=== PATIENT | female | born 1955 | race Caucasian/White ===

== ENCOUNTER → 2018-03-06 11:40 | Outpatient (CLI) | payer BC, SELFPAY ==
[2018-03-06 14:45] LABS: Anion Gap 9 (5-15); BUN 10 mg/dL (7-18); BUN/Creat Ratio 16.3 RATIO (10-20); CRP < 2.90 mg/L (0.0-3.0); Calcium,Total 8.7 mg/dL (8.5-10.1); Chloride 106 mmol/L (98-107); Creatinine, Serum 0.61 mg/dL (0.55-1.02); EST Glomerular Filtration Rate 106 mL/min (>60); Est Glom Filt Rate - Afr Amer 128 mL/min (>60); Ferritin 65 ng/mL (8-252); Glucose 85 mg/dL (74-106); Iron 94 ug/dL (50-170); Potassium 4.1 mmol/L (3.5-5.1); Sodium Level 142 mmol/L (136-145); Thyroid Stim Hormone (TSH) 0.19 uIU/mL (0.358-3.74)
[2018-03-06 14:55] LABS: Erythrocyte Sedimentation Rate < 1 mm/hr (0-30)
[2018-03-06 14:57] LABS: Hematocrit 37.9 % (37-47); Hemoglobin 12.8 g/dl (12.0-15.0); Mean Corp Hgb Conc 33.8 g/gl (32-36); Mean Corpuscular Hgb 31.1 pg (27.0-32.0); Platelet Count 267 K/mm3 (150-450); RBC Distribution Width CV 14.3 % (11.6-14.6); RBC Distribution Width SD 47.4 fl (35.1-43.9); Red Blood Count 4.12 M/mm3 (4.2-5.4); White Blood Count 4.5 K/mm3 (4.4-11.0)
[2018-03-06 15:01] LABS: Scan Indicated on CBC? Y/N NO
[2018-03-07 12:23] LABS: Vitamin B12 457 pg/mL (211-911); Vitamin D,25 Hydroxy 31.7 ng/mL (29.95-100.01)
[2018-03-08 08:48] LABS: T4 Free Direct 0.84 ng/dL (0.76-1.46)
[2018-03-08 14:56] LABS: ANTINUCLEAR ANTIBODIES DIRECT Negative (Negative)
== END ==
PROVIDERS: Family Provider Internal Medicine; PCP Internal Medicine; Visit Provider Family Medicine
DX: R20.0 Anesthesia of skin (principal); E03.9 Hypothyroidism, unspecified
CPT/HCPCS: 80048; 82306; 82607; 82728; 83540; 84439; 84443; 84481; 85027; 85652; 86038; 86140

== ENCOUNTER → 2018-05-02 08:13 | Outpatient (CLI) | payer BC, SELFPAY ==
[2018-05-02 11:49] LABS: Free T3 2.6 pg/mL (2.18-3.98); T4 Free Direct 0.76 ng/dL (0.76-1.46); Thyroid Stim Hormone (TSH) 0.32 uIU/mL (0.358-3.74)
[2018-05-05 14:05] LABS: Follicle Stimulating Hormone 63.6 mIU/mL; Luteinizing Hormone 29.7 mIU/mL
== END ==
PROVIDERS: Family Provider Family Medicine; PCP Family Medicine; Visit Provider Family Medicine
DX: E03.9 Hypothyroidism, unspecified (principal)
CPT/HCPCS: 36415; 83001; 83002; 84439; 84443; 84481

== ENCOUNTER 2018-06-22 14:03 | Emergency (ER) | payer BC, SELFPAY ==
[2018-06-22 14:03] VITALS: BP 124/72; PULSE 63; RESP 14; TEMP 36.4; O2SAT 100; BMI 26.6
[2018-06-22 14:34] VITALS: BP 111/70; PULSE 65; RESP 15; O2SAT 100
--- NOTE | 2018-06-22 14:34 | ED.VISSUMM ---
- ER Visit Summary Date of Service: 06/22/18 Chief Complaint: [] Bee sting right shoulder right posterior thigh today red hive rash over the body History of Present Illness: The patient is a 62 F [] mowing the grass when she was stung by bees or hornets to the right upper shoulder and right posterior thighs she developed immediate rash covering most of her body she had no fever cough chest pain shortness of breath no lip or tongue or airway issues or compromise or swelling paramedics were called and she was given Benadryl brought to the hospital, she is not prone to bee sting reactions as she has been stung before with no reaction she was not ill in any way she has no past history and no complaints this time other than itching all over Physical Examination: [] Vital signs are within normal range she has a red hive type rash covering from her neck down to her lower extremities she is awake and alert her airways intact there is no signs of any airway compromise no mucosal swelling her speech is easy and clear her swallowing is normal her lungs are clear heart tones are normal abdomen soft nontender the sting beckham to the thigh and upper shoulder area to the right are unremarkable no obvious foreign material she is awake alert moving all 4 extremities no no cardiovascular symptoms Test Results: [] Emergency Department Course and Treatment: [] At this time patient has no systemic signs of than the rash she is resting comfortably bed this occurred about an hour ago she was treated by EMS with Benadryl at this time she will be given Solu-Medrol Pepcid we watch her in the department IV fluids, as long as she remains asymptomatic she will given a dose of Kenalog continue Pepcid Benadryl EpiPen prescription and she was instructed to follow-up with appliance counselor and return for any change in symptoms and she understands we will do so Treatment Plan: [] Disposition: [] Home stable Impression: [] Acute generalized hives type reaction after bee sting, no airway compromise or cardiovascular symptoms This note was generated with [employer] dictation software. It may contain incorrect words, spelling, and punctuation that were not noted in review of the chart prior to signing ED Disposition - Plan for ED Patient: Chief Complaint: Allergic Reaction Referrals: Jem Garcia MD [Primary Care Provider] -
[2018-06-22] MEDS: Naproxen 500 MG Tablet PO (14:35)
[2018-06-22] MEDS: MethylPREDNISolone 125 MG/2 ML Vial IV (14:35)
--- NOTE | 2018-06-22 14:37 | ED.DEP ---
ED Disposition - Plan for ED Patient: Chief Complaint: Allergic Reaction Instructions: ED Allergic Reaction General Other, ED Bite Sting Insect Gen Allergic React Prescriptions: DiphenhydrAMINE [Benadryl] 25 mg PO TID PRN PRN #20 cap PRN Reason: Itching Epinephrine [Epi Pen] 0.3 mg IM X1 #1 syringe Famotidine [Pepcid] 20 mg PO BID #28 tab Referrals: Jem Garcia MD [Primary Care Provider] -
--- NOTE | 2018-06-22 14:40 | ED.DEP ---
ED Disposition - Plan for ED Patient: Chief Complaint: Allergic Reaction Instructions: ED Bite Sting Insect Gen Allergic React, ED Allergic Reaction General Other Prescriptions: DiphenhydrAMINE [Benadryl] 25 mg PO TID PRN PRN #20 cap PRN Reason: Itching Epinephrine [Epi Pen] 0.3 mg IM X1 #1 syringe Famotidine [Pepcid] 20 mg PO BID #28 tab Referrals: Jem Garcia MD [Primary Care Provider] - Marko Moscoso MD [COURTESY STAFF PHYSICIAN] -
[2018-06-22] MEDS: Triamcinolone Acetonide 40 MG/ML Vial IM (15:34)
[2018-06-22 15:36] VITALS: BP 125/71; PULSE 65; RESP 16; O2SAT 100
== END 2018-06-22 15:51 | disposition home or self-care (01) ==
PROVIDERS: Emergency Provider Emergency Medicine; Family Provider Family Medicine; PCP Family Medicine
DX: T63.441A Toxic effect of venom of bees, accidental (unintentional), initial encounter (principal); L50.9 Urticaria, unspecified; Y92.096 Garden or yard of other non-institutional residence as the place of occurrence of the external cause
CPT/HCPCS: 96361; 96372; 96374; 96375; 99285; J7040; J3490

== ENCOUNTER → 2018-09-15 10:42 | Outpatient (CLI) | payer BC, SELFPAY ==
[2018-09-15 12:39] LABS: Vitamin D,25 Hydroxy 29.2 ng/mL (29.95-100.01)
[2018-09-15 12:46] LABS: Free T3 2.7 pg/mL (2.18-3.98); T3 Uptake 37 % (30-39); T4 Free Direct 0.81 ng/dL (0.76-1.46); T7 / Free Thyroxin Index 2.2 (1.4-4.5); Thyroid Stim Hormone (TSH) 0.26 uIU/mL (0.358-3.74)
[2018-09-16 08:55] LABS: Thyroid Peroxidase AB 11 IU/mL (0-34)
== END ==
PROVIDERS: Family Provider Family Medicine; PCP Family Medicine; Visit Provider Family Medicine
DX: E03.9 Hypothyroidism, unspecified (principal); E55.9 Vitamin D deficiency, unspecified
CPT/HCPCS: 82306; 84436; 84439; 84443; 84479; 84481; 86376

== ENCOUNTER → 2018-10-21 07:32 | Outpatient (CLI) | payer BC, SELFPAY ==
--- NOTE | 2018-10-21 07:36 | NM_ITS ---
CLINICAL: 83-year-old female with history of suppressed serum TSH level. I-123 THYROID UPTAKE and SCAN COMPARISON: None available FINDINGS: The patient was administered a 342 uCi I-123 capsule by mouth. The 4-hour I-123 radioactive iodine thyroidal uptake was calculated to be 23.0 % (normal 5 to 25 %). The 24-hour I-123 radioactive iodine thyroidal uptake was calculated to be 42.0 % (normal 5 to 40 %). The I-123 thyroid scan demonstrates a focal increase in radiopharmaceutical concentration identified in the superior-mid pole of the enlarged right lobe of the thyroid gland with a relative decrease in tracer distribution noted in the remaining right lobe, thyroid isthmus and left lobe thyroid colloid. No definitive hypofunctioning-cold nodules are visualized. NM/Thyroid Uptake Single or Mult IMPRESSION: 1. UPPER LIMITS OF NORMAL 4- and ELEVATED 24-hour I-123 radioactive iodine thyroidal uptakes. 2. 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 3. There are no hypofunctioning-cold nodules visualized in the right-left thyroid lobes. Electronically Signed: Raúl Sarmiento DO at 10:01 EST Tel , Service support ,
== END ==
PROVIDERS: Family Provider Family Medicine; PCP Family Medicine; Referring Provider Family Medicine; Visit Provider Family Medicine
DX: E03.9 Hypothyroidism, unspecified (principal)
CPT/HCPCS: 78012; A9516

== ENCOUNTER → 2019-09-21 15:32 | Outpatient (CLI) | payer BC, SELFPAY ==
[2019-09-21 18:10] LABS: T4 Free Direct 0.86 ng/dL (0.76-1.46); Thyroid Stim Hormone (TSH) 0.32 uIU/mL (0.358-3.74)
== END ==
PROVIDERS: Family Provider Family Medicine; PCP Family Medicine; Visit Provider Family Medicine
DX: E03.9 Hypothyroidism, unspecified (principal)
CPT/HCPCS: 36415; 84439; 84443

== ENCOUNTER → 2019-10-12 18:17 | Outpatient (CLI) | payer BC, SELFPAY ==
[2019-10-15 18:14] LABS: HPV Reflexed? NOT INDICATED
== END ==
PROVIDERS: Family Provider Family Medicine; PCP Family Medicine; Referring Provider Nurse Practitioner Adult Health; Visit Provider Nurse Practitioner Adult Health
DX: Z12.4 Encounter for screening for malignant neoplasm of cervix (principal)
CPT/HCPCS: 88175; G0145

== ENCOUNTER → 2020-10-12 08:02 | Outpatient (CLI) | payer BC, SELFPAY ==
[2020-10-12 10:54] LABS: Anion Gap 3 (5-15); BUN 12 mg/dL (7-18); BUN/Creat Ratio 16.7 RATIO (10-20); Calcium,Total 8.8 mg/dL (8.5-10.1); Chloride 108 mmol/L (98-107); Cholesterol 228 mg/dL (200); Creatinine, Serum 0.72 mg/dL (0.55-1.02); EST Glomerular Filtration Rate 87 mL/min (>60); Est Glom Filt Rate - Afr Amer 105 mL/min (>60); Free T3 2.8 pg/mL (2.18-3.98); Glucose 76 mg/dL (74-106); High Density Lipoprotein 92 mg/dL; Sodium Level 139 mmol/L (136-145); T4 Free Direct 0.78 ng/dL (0.76-1.46); Triglycerides 39 mg/dL; Very Low Density Lipoprotein 8 mg/dL (5-40)
[2020-10-12 11:06] LABS: Vitamin D,25 Hydroxy 46.6 ng/mL
[2020-10-13 07:16] LABS: SARS-COV-2 TOTAL ABS Reactive (Nonreactive)
== END ==
PROVIDERS: PCP Family Medicine; Referring Provider Family Medicine; Visit Provider Family Medicine
DX: Z00.00 Encounter for general adult medical examination without abnormal findings (principal); E03.9 Hypothyroidism, unspecified; E55.9 Vitamin D deficiency, unspecified; Z13.220 Encounter for screening for lipoid disorders; Z13.1 Encounter for screening for diabetes mellitus
CPT/HCPCS: 36415; 80048; 80061; 82306; 84439; 84443; 84481; 86769

== ENCOUNTER → 2020-10-25 15:35 | Outpatient (CLI) | payer BC, SELFPAY ==
--- NOTE | 2020-10-25 15:36 | BI_ITS ---
MAMMOGRAPHY - BILATERAL SCREENING REASON FOR EXAM: Female, 65 years old. Routine annual screening examination. PERTINENT HISTORY: Non-contributory. TECHNIQUE: Digital bilateral breast romina (3D mammographic acquisition) in the CC and MLO projections. 2-D mediolateral oblique (MLO) and craniocaudad (CC) views of both breasts were obtained. CAD: Full Field Digital Mammography with Computer Added Detection was performed. COMPARISON: Comparison is made with prior outside examination dated 09/24/2019. FINDINGS: Breast Composition: The breasts are heterogeneously dense, which may obscure small masses. Stable 1.5 cm x 2.3 cm well-defined nodule in the upper lateral aspect of the left breast. Correlation with ultrasound is recommended. No other significant abnormalities are identified. BI/SCRN MAMM (CAD)W/ROMINA BILAT IMPRESSION: Stable 1.5 cm x 2.3 cm well-defined nodule in the upper lateral aspect of the left breast as described. Correlation with ultrasound is recommended. ASSESSMENT CATEGORY: BIRADS Category 0: Incomplete. Need additional imaging evaluation. A letter regarding these results will be sent to the patient by the facility within 30 days. Approximately 10% of breast cancers are not detected by mammography. A normal mammogram should not delay biopsy of a clinically suspicious abnormality. [id number] Electronically Signed: Shun Mike MD at 8:12 EST , Service support ,
== END ==
PROVIDERS: PCP Family Medicine; Visit Provider Family Medicine
DX: Z12.31 Encounter for screening mammogram for malignant neoplasm of breast (principal); Z13.820 Encounter for screening for osteoporosis
CPT/HCPCS: 77063; 77067

== ENCOUNTER → 2020-10-31 12:27 | Outpatient (CLI) | payer BC, SELFPAY ==
--- NOTE | 2020-10-31 12:29 | US_ITS ---
STUDY: ULTRASOUND BREAST - LEFT REASON FOR EXAM: Female, 65 years old. Abnormal screening mammogram. TECHNIQUE: Axial and longitudinal images of the LEFT breast were performed with a high resolution ultrasound transducer. # OF IMAGES: 11 COMPARISON: Comparison is made with prior mammogram dated 10/25/2020. FINDINGS: LEFT Breast: The mammographic abnormality corresponds to 2.1 cm x 2.1 cm x 0.7 cm cyst with a septation. A 4 month sonographic follow-up examination is suggested. US/Breast Limited Unilateral IMPRESSION: 2.1 cm x 2.1 cm x 0.7 cm cyst with a septation at the 1 o''clock position of the breast at 9 cm from the nipple. A four-month follow-up examination is recommended. ASSESSMENT CATEGORY: BIRADS Category 3: Probably Benign - Short-Interval Follow-up Suggested. A letter regarding these results will be sent to the patient by the facility within 30 days. Electronically Signed: Shun Mike MD at 15:01 EST , Service support ,
== END ==
PROVIDERS: PCP Family Medicine; Visit Provider Family Medicine
DX: R92.8 Other abnormal and inconclusive findings on diagnostic imaging of breast (principal); N60.02 Solitary cyst of left breast
CPT/HCPCS: 76642

== ENCOUNTER → 2021-02-27 09:31 | Outpatient (CLI) | payer BC, SELFPAY ==
--- NOTE | 2021-02-27 09:35 | US_ITS ---
STUDY: ULTRASOUND BREAST - LEFT REASON FOR EXAM: Female, 65 years old. 4 month follow-up of the left breast ultrasound. TECHNIQUE: Axial and longitudinal images of the LEFT breast were performed with a high resolution ultrasound transducer. # OF IMAGES: 18 COMPARISON: Comparison is made with prior examination dated 04/30/2021. FINDINGS: LEFT Breast: Stable 1.9 cm x 2 signed by 0.5 cm cyst with a septation at the 1 o''clock position of the breast at 9 cm from nipple. US/Breast Limited Unilateral IMPRESSION: Stable examination. Routine mammographic follow-up is recommended. ASSESSMENT CATEGORY: BIRADS Category 2: Benign. A letter regarding these results will be sent to the patient by the facility within 30 days. Electronically Signed: Shun Mike MD at 10:15 EDT , Service support ,
== END ==
PROVIDERS: PCP Family Medicine; Referring Provider Family Medicine; Visit Provider Family Medicine
DX: R92.8 Other abnormal and inconclusive findings on diagnostic imaging of breast (principal)
CPT/HCPCS: 76642

== ENCOUNTER 2022-01-09 15:59 | Outpatient (CLI) | payer BC, SELFPAY ==
--- NOTE | 2022-01-09 16:05 | BI_ITS ---
MAMMOGRAPHY - BILATERAL SCREENING REASON FOR EXAM: Female, 66 years old. Routine annual screening examination. PERTINENT HISTORY: Non-contributory. TECHNIQUE: Digital bilateral breast romina (3D mammographic acquisition) in the CC and MLO projections. 2-D mediolateral oblique (MLO) and craniocaudad (CC) views of both breasts were obtained. CAD: Full Field Digital Mammography with Computer Added Detection was performed. COMPARISON: Comparison is made with prior study dated 10/25/2020. FINDINGS: Breast Composition: The breasts are heterogeneously dense, which may obscure small masses. Stable 1.5 cm x 2.3 cm well-defined nodule in the upper lateral aspect of the left breast. This was demonstrated to be a septated cyst on prior sonogram. No other significant abnormalities are identified. There has been no significant change since the prior study. BI/SCRN MAMM (CAD)W/ROMINA BILAT IMPRESSION: Stable bilateral screening mammogram. Yearly follow-up mammogram recommended. (A) ASSESSMENT CATEGORY: BIRADS Category 2: Benign. A letter regarding these results will be sent to the patient by the facility within 30 days. Approximately 10% of breast cancers are not detected by mammography. A normal mammogram should not delay biopsy of a clinically suspicious abnormality. [id number] Electronically Signed: Shun Mike MD at 8:23 EDT ,
== END 2022-01-09 23:59 | disposition home or self-care (01) ==
PROVIDERS: PCP Family Medicine; Referring Provider Family Medicine; Visit Provider Family Medicine
DX: Z12.31 Encounter for screening mammogram for malignant neoplasm of breast (principal)
CPT/HCPCS: 77063; 77067

== ENCOUNTER → 2022-02-07 | Outpatient (CLI) | payer BC, SELFPAY ==
[2022-02-13 16:45] LABS: HPV APTIMA, High Risk Negative (Negative)
== END | disposition home or self-care (01) ==
LOC: LABSPEC 16:06
PROVIDERS: PCP Family Medicine; Visit Provider Nurse Practitioner Women's Health
DX: Z78.0 Asymptomatic menopausal state (principal)
CPT/HCPCS: 87624; 88175; G0145

== ENCOUNTER 2022-07-03 08:17 | Emergency (ER) | payer BC, SELFPAY ==
[2022-07-03 08:19] VITALS: BP 144/78; PULSE 55; RESP 11; TEMP 37.1; O2SAT 99; BMI 23.5
--- NOTE | 2022-07-03 08:31 | RAD_ITS ---
STUDY: X-RAY CHEST REASON FOR EXAM: Female, 66 years old. Chest pain TECHNIQUE: Single AP portable view of the chest. COMPARISON: None. FINDINGS: EKG electrodes are seen. Hyperinflation. The lungs are clear. There is no demonstrated pleural abnormality. Normal size heart. Normal mediastinum and stephen. Normal visualized pulmonary arteries. There is atherosclerotic calcification of the aortic arch with tortuosity. Normal visualized thoracic spine. Normal visualized ribs, clavicles, and shoulders. There is no demonstrated abnormality of the visualized soft tissue structures of the upper abdomen. RAD/Chest 1 View (Portable) IMPRESSION: Hyperinflation. The lungs are clear. Electronically Signed: Shun Mike MD at 9:13 EDT ,
--- NOTE | 2022-07-03 08:31 | EKG12_ITS ---
Test Reason : SYNCOPE Blood Pressure : / mmHG Vent. Rate : 058 BPM Atrial Rate : 058 BPM P-R Int : 148 ms QRS Dur : 088 ms QT Int : 430 ms P-R-T Axes : 067 059 058 degrees QTc Int : 422 ms Sinus bradycardia with sinus arrhythmia Otherwise normal ECG Confirmed by LINUS SKINNER, MARQUITA ([id number]), acquisition editor RAMON LEDEZMA ([id number]) on 07/05/2022 9:47:39 AM Referred By: SUREKHA Confirmed By:MARQUITA BARRIGA MD
[2022-07-03 08:34] VITALS: O2SAT 100
[2022-07-03 08:38] LABS: Absolute Lymphocyte Count 2.77 X10^3/uL (0.83-4.51); Absolute Neutrophil Count 3.2 X10^3/uL (2.0-7.7); Basophil# 0.06 X10^3/uL; Basophil% 0.9 % (0-1); Eosinophil# 0.15 X10^3/uL; Eosinophils% 2.2 % (0-5); Hematocrit 41.2 % (37-47); Hemoglobin 13.9 g/dL (12.0-15.0); Lymphocyte # 2.77 X10^3/ul (0.83-4.51); Lymphocyte % 40.6 % (19-41); Mean Corp Hgb Conc 33.7 g/dL (32-36); Mean Corpuscular Hgb 32.2 pg (27.0-32.0); Mean Corpuscular Volume 95.4 fL (81-99); Mean Platelet Vol. 11.4 fl (6.2-12.0); Monocyte# 0.59 X10^3/uL; Monocyte% 8.6 % (0-10); NRBC Flagged by Analyzer 0 % (0-5); Neutrophil # 3.23 X10^3/uL (2.7-7.7); Neutrophil % 47.3 % (47-70); Platelet Count 366 K/mm3 (150-450); RBC Distribution Width CV 13.7 % (11.6-14.6); RBC Distribution Width SD 48.5 fl (35.1-43.9); Red Blood Count 4.32 M/mm3 (4.2-5.4); White Blood Count 6.8 K/mm3 (4.4-11.0)
--- NOTE | 2022-07-03 08:49 | EDS_ITS ---
HPI History of Present Illness Chief Complaint: Syncope Informant: patient Onset/Context/Timing Onset: Today Current Severity: Gone Maximum Severity: Mild Narrative Narrative: 66-year-old female no seen past medical history. No major surgeries. She denies being on any medications. States she has been feeling fine the last several days. No recent illness or hospitalization. States she was in the garage talking to people when she got lightheaded and had a syncopal event lasted briefly a few seconds. She did hit her left forehead. Denies any headache. No chest pain. No palpitations. No recent illness. No nausea, vomiting, diarrhea. No fever. No dysuria. She has had no chest pain or shortness of breath. Time she remembers passing out was when she had a significant reaction in the past to bee stings. Currently she feels fine. Denies any injuries when she fell and she hit her left forehead. Prior similar symptoms: No Recent Illness/Hospitalization: No PFSH PFSH Home Medications multivitamin (Multiple Vitamins tablet) 1 ea PO DAILY 06/22/18 [History Last Taken Unknown] cholecalciferol (vitamin D3) 50 mcg (2,000 unit) capsule 50 mcg PO DAILY 02/07/22 [History Last Taken Unknown] epinephrine 0.3 mg/0.3 mL injection, auto-injector 07/03/22 [History Last Taken Unknown] Allergy/AdvReac Type Severity Reaction Status Date / Time bee venom protein (honey bee) Allergy Rash Verified 07/03/22 08:18 [bees] Family History Father Heart disease Mother Dementia Surgical History H/O medial meniscus repair of left knee H/O tubal ligation Social History household members: none current occupational status: employed and retired 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 Review of Systems ROS Unobtainable: Denies due to encephalopathy Constitutional Constitutional ED: Denies chills or fever(s) Eyes Eyes: Denies blurry vision ENT ENT ED: Denies ear pain Cardiovascular Cardiovascular: Denies chest pain Respiratory/Chest Respiratory/Chest: Denies cough or dyspnea Gastrointestinal Gastrointestinal: Denies abdominal pain, constipation, diarrhea, melena, nausea or vomiting Genitourinary Genitourinary ED: Denies dysuria or hematuria Musculoskeletal Musculoskeletal: Denies arthralgias or back pain Integumentary Denies abscess or Abrasions Neurologic Neurologic: Denies headache(s) Psychiatric Psychiatric: Denies anxiety or depression Endocrine Endocrinology: Denies cold intolerance Hematologic/Lymphatic Hematologic/Lymphatic: Reports none Allergic/Immunologic Allergic/Immunologic ED: Denies mouth swelling or tongue swelling EXAM Physical Exam Narrative Exam Narrative: 66-year-old female no acute distress vital signs stable afebrile. Pulse ox 9 9% on room air no signs of hypoxia. She looks well. Does not look sick. She is in no distress. H EENT exam she has a small contusion left forehead. Pupils round reactive light. TMs and throat are normal. Scalp nontender. Lungs are clear equal symmetrical heart regular rate and rhythm no murmur rate about 60. Chest wall nontender. Abdomen soft nontender. Back nontender. Cervical, thoracic lumbar spine nontender. Trachea midline. Moving all 4 extremities. Nontender no deformity. Normal range of motion. Neurologically she is awake and alert with no focal motor deficits. 5 out of 5 night clerk strength. Dorsi plantarflexion intact. He has a normal exam other than mild contusion on her left forehead. Const Vital Signs: 07/03/22 08:19 07/03/22 08:22 07/03/22 09:08 Temperature 98.8 F Temperature Source Temporal Pulse Rate 55 L 58 L Pulse Rate [Lying] Pulse Rate [Sitting (for 1 minute prior to obtaining)] Pulse Rate [Standing (for 1 minute prior to obtaining)] Respiratory Rate 11 L 13 Respiratory Effort Normal Non-Labored Respiratory Pattern Normal Blood Pressure 144/78 H 105/76 Blood Pressure [Lying] Blood Pressure [Sitting (for 1 minute prior to obtaining)] Blood Pressure [Standing (for 1 minute prior to obtaining)] Blood Pressure Mean 100 85 Blood Pressure Mean [Lying] Blood Pressure Mean [Sitting (for 1 minute prior to obtaining)] Blood Pressure Mean [Standing (for 1 minute prior to obtaining)] Pulse Ox 99 100 Oxygen Delivery Method Room Air Room Air 07/03/22 08:34 07/03/22 08:52 Temperature Temperature Source Pulse Rate Pulse Rate [Lying] 57 L Pulse Rate [Sitting (for 1 minute prior to obtaining)] 56 L Pulse Rate [Standing (for 1 minute prior to obtaining)] 83 Respiratory Rate Respiratory Effort Respiratory Pattern Blood Pressure Blood Pressure [Lying] 124/75 H Blood Pressure [Sitting (for 1 minute prior to obtaining)] 132/73 H Blood Pressure [Standing (for 1 minute prior to obtaining)] 105/76 Blood Pressure Mean Blood Pressure Mean [Lying] 91 Blood Pressure Mean [Sitting (for 1 minute prior to obtaining)] 92 Blood Pressure Mean [Standing (for 1 minute prior to obtaining)] 85 Pulse Ox 100 Oxygen Delivery Method Room Air Positive well nourished and well developed; Negative for obese, cachectic, contractures or unkempt General Appearance ED: well developed and NAD; Negative for unkempt, cachectic, contractures, cyanotic, diaphoretic or pallor Nutritional Appearance: Negative for cachectic or obese HEENT Reports TM's clear and moist mucous membranes; Denies dry mucous membranes HEENT Narrative: Left forehead small contusion. No significant hematoma. No laceration. trauma Tympanic Membrane ED: Yes TM's clear Mouth ED: No dry mucous membranes Mouth: No dry mucous membranes Eyes PERRL and EOMs intact bilaterally General Eye ED: Negative for pale conjunctiva or scleral icterus Neck no lymphadenopathy, supple and no JVD General: Negative for tenderness or other Lymph Lymphatic: Negative for other Chest Wall inspection of chest normal and palpation of chest normal Chest: Negative for other Resp normal respiratory effort and clear to auscultation bilaterally Effort and Inspection: Negative for retractions Auscultation: Negative for rales, rhonchi or wheezes Cardio regular rate, regular rhythm, S1 normal heart sound, S2 normal heart sound and no murmurs Palpation: Negative for palpable S3 Rate: Negative for bradycardia Rhythm: Negative for abnormal rhythm GI normal to inspection, nondistended, normoactive bowel sounds, non-tender, non- distended and no masses Inspection: Negative for abdominal distention Auscultation: normoactive bowel sounds Palpation: soft; Negative for tender Bladder / Kidney Exam: No other Back/Spine no CVA tenderness General Back: Negative for CVA tenderness Cervical Spine: Negative for cervical spine tenderness Thoracic Spine / Upper Back: Negative for thoracic spinal tenderness Lumbar Spine / Lower Back: Negative for lumbar spinal tenderness Extremity normal to inspection General Extremety ED: Negative for edema or tenderness General Extremity: Negative for edema Neuro oriented x3, CN's II-XII intact bilaterally and no sensory deficits noted Sensorium / Orientation: alert; Negative for orientation impaired, lethargic or stuporous Sensory Exam: No sensory level loss detected Motor Exam: strength 5/5 throughout; Negative for general weakness or strength abnormal Psych mental status grossly normal Appearance: Negative for unkempt Attitude: No agitated Mood & Affect: Negative for depressed Skin no rashes or lesions noted, no wounds and skin turgor normal General Skin Exam: elasticity normal; Negative for jaundice or pallor Lesions: No lesion noted Rashes: No rashes noted Trauma: Negative for abrasion Wounds: Negative for wounds noted MDM MDM MDM Narrative Medical decision making narrative: 66-year-old female had a syncopal episode. Exam is benign other than mild left forehead contusion. She undergo cardiac work-up with orthostatic vital signs. Repeat exam the patient is doing well at 9:10 AM. She feels fine. Her labs are unremarkable as is her chest x-ray and EKG. Her exam is normal other than small contusion to her forehead. She denies any headache or neck pain. Her orthostatic vital signs she had mild drop in her blood pressure from sitting to standing but she had no symptoms. She has no signs or reasons to be dehydrated. And her labs do not show that. She has had no recent palpitations or chest pain. Compliant with her being discharged home with outpatient follow-up with her primary care physician Dr. Rodger Pompa. Lab Data Attestation: I reviewed the patient's lab results. Lab results narrative: CBC shows a white count of 6.8. H&H of 13.9 and 41. Platelets normal. Chemistries normal gap is 6 normal BUN and creatinine at 10 and 0.7. Glucose 12 3 and troponin is normal at 4. Labs: Laboratory Results - last 24 hr 07/03/22 07/03/22 08:22 08:22 WBC 6.8 RBC 4.32 Hgb 13.9 Hct 41.2 MCV 95.4 MCH 32.2 H MCHC 33.7 RDW Std Deviation 48.5 H RDW Coeff of Porfirio 13.7 Plt Count 366 MPV 11.4 Immature Gran % (Auto) 0.400 Neut % (Auto) 47.3 Lymph % (Auto) 40.6 Nolan % (Auto) 8.6 Eos % (Auto) 2.2 Baso % (Auto) 0.9 Absolute Neuts (auto) 3.2 Absolute Lymphs (auto) 2.77 Nucleated RBC % 0 Sodium 142 Potassium 3.8 Chloride 107 Carbon Dioxide 29.0 Anion Gap 6 BUN 10 Creatinine 0.75 Estim Creat Clear Calc 62.69 Est GFR (MDRD) Af Amer 100 Est GFR (MDRD) Non-Af 83 BUN/Creatinine Ratio 13.4 Glucose 123 H Calcium 9.1 Troponin I High Sens 4 Radiography Chest X-Ray - ED: 1 View, Read by ED Physician, Heart, Lungs, Mediastinum, Bony Structures, No Acute Disease and Chronic Changes Diagnostic Testing: Chest x-ray, portable, single view interpreted by self shows no acute abnormality. Normal cardiac silhouette. Normal lung parry. Normal mediastinum. Rhythm Strip Rhythm Strip: Sinus Rhythm Rate: 58 Ectopy: None EKG Initial EKG: Attestation: I personally reviewed and interpreted this EKG as follows: Interpretation: Sinus Rhythm, No Acute Injury Pattern and Sinus Bradycardia Comments: Sinus bradycardia rate of 58. No acute signs of VA, ischemia or dysrhythmia. Discharge Plan Triage Chief Complaint: Syncope ED Provider: Geovanny Sanchez Dx/Rx/DC Orders Clinical Impression: Syncope, Closed head injury Instructions: ED Head Injury (Adult), ED Fainting, Uncertain Cause Prescriptions: No Action cholecalciferol (vitamin D3) 50 mcg (2,000 unit) capsule 50 mcg PO DAILY multivitamin [Multiple Vitamins] 1 EACH tablet 1 ea PO DAILY epinephrine [Epi E-Z Pen] 0.3 mg/0.3 mL Auto-Injector Primary Care Provider: Jem Garcia Referrals: Jem Garcia MD [Primary Care Provider] - 3-5 Days Activity Restrictions/Additional Instructions: Other than the contusion on your forehead your exam is normal. All your lab work, EKG and chest x-ray were unremarkable. Follow-up with your doctor for further evaluation. We do not have a specific cause for why you may have briefly passed out. Ice to your forehead. Tristanenol for pain. Return if severe headache, intractable vomiting or not acting right. But at this time you do not need a CAT scan. Disposition Disposition: Home, Self Care
[2022-07-03 08:52] VITALS: BP 105/76; BP 124/75; BP 132/73; PULSE 56; PULSE 57; PULSE 83
[2022-07-03 08:55] LABS: Anion Gap 6 (5-15); BUN 10 mg/dL (7-18); BUN/Creat Ratio 13.4 RATIO (10-20); Calcium,Total 9.1 mg/dL (8.5-10.1); Chloride 107 mmol/L (98-107); Creatinine, Serum 0.75 mg/dL (0.55-1.02); EST Glomerular Filtration Rate 83 mL/min (>60); Est Glom Filt Rate - Afr Amer 100 mL/min (>60); Estimated Creatinine Clearance 62.69 ml/min; Glucose 123 mg/dL (74-106); Potassium 3.8 mmol/L (3.5-5.1); Sodium Level 142 mmol/L (136-145); Troponin-I HS (w/2H Reflex) 4 pg/mL (3.0-54.0)
[2022-07-03 09:08] VITALS: BP 105/76; PULSE 58; RESP 13; O2SAT 100
[2022-07-03 09:18] VITALS: BP 123/81; PULSE 57; RESP 17; O2SAT 100
[2022-07-03 10:35] LABS: Reflex Troponin-HS? (from REC) Y
== END 2022-07-03 09:21 | disposition home or self-care (01) ==
PROVIDERS: Emergency Provider Emergency Medicine; PCP Family Medicine; Visit Provider Emergency Medicine
DX: R55 Syncope and collapse (principal); S00.83XA Contusion of other part of head, initial encounter; W22.8XXA Striking against or struck by other objects, initial encounter
CPT/HCPCS: 71045; 80048; 84484; 85025; 93005; 99285

== ENCOUNTER → 2023-01-29 | Outpatient (CLI) | payer MEDICARE, OTHER, SELFPAY ==
[2023-01-29 13:32] LABS: Anion Gap 2 (5-15); BUN 10 mg/dL (7-18); BUN/Creat Ratio 15.3 RATIO (10-20); Calcium,Total 9.3 mg/dL (8.5-10.1); Chloride 108 mmol/L (98-107); Cholesterol 224 mg/dL (200); Creatinine, Serum 0.65 mg/dL (0.55-1.02); EST Glomerular Filtration Rate 97 mL/min (>60); Est Glom Filt Rate - Afr Amer 117 mL/min (>60); Glucose 86 mg/dL (74-106); High Density Lipoprotein 94 mg/dL; Potassium 4.2 mmol/L (3.5-5.1); Sodium Level 137 mmol/L (136-145); Thyroid Stim Hormone (TSH) 0.19 uIU/mL (0.358-3.74); Triglycerides 47 mg/dL; Very Low Density Lipoprotein 9 mg/dL (5-40)
[2023-01-29 13:37] LABS: Vitamin D,25 Hydroxy 60.2 ng/mL
[2023-01-31 12:44] LABS: Free T3 2.9 pg/mL (2.18-3.98); T4 Free Direct 0.79 ng/dL (0.76-1.46)
[2023-02-01 08:12] LABS: Thyroid Peroxidase AB < 9 IU/mL (0-34)
== END | disposition home or self-care (01) ==
LOC: MFPLAB 09:59
PROVIDERS: PCP Family Medicine; Visit Provider Family Medicine
DX: Z13.1 Encounter for screening for diabetes mellitus (principal); E03.9 Hypothyroidism, unspecified; Z13.220 Encounter for screening for lipoid disorders; E55.9 Vitamin D deficiency, unspecified
CPT/HCPCS: 36415; 80048; 80061; 82306; 84439; 84443; 84481; 86376

== ENCOUNTER → 2023-02-26 | Outpatient (CLI) | payer MEDICARE, OTHER, SELFPAY ==
--- NOTE | 2023-02-26 12:56 | BI_ITS ---
MAMMOGRAPHY - BILATERAL SCREENING REASON FOR EXAM: Female, 67 years old. Routine annual screening examination. PERTINENT HISTORY: Non-contributory. TECHNIQUE: Digital bilateral breast romina (3D mammographic acquisition) in the CC and MLO projections. 2-D mediolateral oblique (MLO) and craniocaudad (CC) views of both breasts were obtained. CAD: Full Field Digital Mammography with Computer Added Detection was performed. COMPARISON: Mammogram from 01/09/2022, 10/25/2020. Left breast ultrasound from 03/30/2021. FINDINGS: Breast Composition: The breasts are heterogeneously dense, which may obscure small masses. There is an asymmetry in the right slightly inner retroareolar breast, approximately 1.6 cm posterior to the nipple and seen only on cc views. This appears slightly more conspicuous than on previous studies. Further assessment with spot compression views and ultrasound if needed is recommended. There is a stable 2.4 x 1.3 cm well-circumscribed mass in the left upper outer breast that was previously characterized as a septated benign cyst on ultrasound from 03/30/2021. No suspicious calcifications. BI/SCRN MAMM (CAD)W/ROMINA BILAT IMPRESSION: Further imaging evaluation recommended, as described above. (E) Recall Side: Right Breast ASSESSMENT CATEGORY: BIRADS Category 0: Incomplete. Need additional imaging evaluation. A letter regarding these results will be sent to the patient by the facility within 30 days. Approximately 10% of breast cancers are not detected by mammography. A normal mammogram should not delay biopsy of a clinically suspicious abnormality. Electronically Signed: Ankur Blank MD at 16:49 EDT ,
--- NOTE | 2023-02-26 13:01 | BD_ITS ---
STUDY: DUAL ENERGY X-RAY ABSORPTIOMETRY / DXA REASON FOR EXAM: Female, 67 years old. [id number] TECHNIQUE: Bone Mineral Density (BMD) measurements of lumbar spine and bilateral hips were obtained. COMPARISON: None. FINDINGS: Lumbar Spine (L1-L4): g/cm2 (0.935) / T-score (-0.8) / Z-score (1.0) Findings are suggestive of normal bone density with a low fracture risk. Left Femur Total: g/cm2 (0.795) / T-score (-1.2) / Z-score (0.0) Left Femoral Neck: g/cm2 (0.696) / T-score (-1.4) / Z-score (0.2) Right Femur Total: g/cm2 (0.781) / T-score (-1.3) / Z-score (-0.1) Right Femoral Neck: g/cm2 (0.705) / T-score (-1.3) / Z-score (0.2) BD/Dexa Bone Density Study IMPRESSION: The patient is considered osteopenic as outlined below according to World Wayne Organization (WHO) criteria with a low fracture risk. Reference Information: The T-score is the number of standard deviations above or below the standard which is normal for young adults at their peak bone mineral density. The World Health Organization (WHO) interprets the T-scores as follows: Above -1 Normal bone density Between -1 and -2.5 Osteopenia Equal to / or below -2.5 Osteoporosis As a practical clinical guideline, osteopenia may be graded as follows: Mild -1 through -1.5 Moderate -1.6 through -2.0 Severe -2.1 through -2.4 The Z-score is the number of standard deviations above or below age-matched controls. A Z-score of less than -1.5 would be considered abnormal. References: 1. NIH Osteoporosis and Related Bone Diseases www osteo.org 2. International Society for Clinical Densitometry www iscd.org 3. National Osteoporosis Foundation www nof.org Electronically Signed: Shun Mike MD at 10:45 EDT ,
== END | disposition home or self-care (01) ==
LOC: OPBD 12:54
PROVIDERS: PCP Family Medicine; Referring Provider Family Medicine; Visit Provider Family Medicine
DX: Z12.31 Encounter for screening mammogram for malignant neoplasm of breast (principal); Z78.0 Asymptomatic menopausal state
CPT/HCPCS: 77063; 77067; 77080

== ENCOUNTER → 2023-03-06 | Outpatient (CLI) | payer MEDICARE, OTHER, SELFPAY ==
--- NOTE | 2023-03-06 12:22 | US_ITS ---
STUDY: ULTRASOUND BREAST - RIGHT REASON FOR EXAM: Female, 67 years old. Abnormal screening mammogram. TECHNIQUE: Axial and longitudinal images of the RIGHT breast were performed with a high resolution ultrasound transducer. # OF IMAGES: 34 COMPARISON: Comparison is made with prior mammogram dated February 26, 2023 and March 06, 2023. FINDINGS: RIGHT Breast: The retroareolar region of the breast was examined with ultrasound. No sonographic abnormality is seen. US/Breast Limited Unilateral IMPRESSION: No sonographic abnormality is seen. ASSESSMENT CATEGORY: BIRADS Category 1: Negative. A letter regarding these results will be sent to the patient by the facility within 30 days. Electronically Signed: Shun Mike MD at 14:59 EDT ,
--- NOTE | 2023-03-06 12:22 | BI_ITS ---
MAMMOGRAPHY - UNILATERAL DIAGNOSTIC: RIGHT BREAST REASON FOR EXAM: Female, 67 years old. Abnormal screening mammogram. PERTINENT HISTORY: Asymmetry in the inner retroareolar region of the right breast. TECHNIQUE: Compression spot views in the mediolateral oblique and craniocaudad projections were obtained. CAD: Full Field Digital Mammography with Computer Added Detection was performed. COMPARISON: Comparison is made with prior mammogram dated February 26, 2023. FINDINGS: Breast Composition: The breasts are heterogeneously dense, which may obscure small masses. There are no dominant masses or suspicious calcifications. No other significant abnormalities are identified. BI/DIAG MAMM W/CAD, UNILAT IMPRESSION: Negative unilateral diagnostic mammogram. Yearly followup mammogram recommended. (A) ASSESSMENT CATEGORY: BIRADS Category 1: Negative. A letter regarding these results will be sent to the patient by the facility within 30 days. Approximately 10% of breast cancers are not detected by mammography. A normal mammogram should not delay biopsy of a clinically suspicious abnormality. Electronically Signed: Shun Mike MD at 13:35 EDT ,
== END | disposition home or self-care (01) ==
LOC: OPBI 12:20
PROVIDERS: PCP Family Medicine; Referring Provider Family Medicine; Visit Provider Family Medicine
DX: R92.8 Other abnormal and inconclusive findings on diagnostic imaging of breast (principal)
CPT/HCPCS: 76642; 77065

== ENCOUNTER → 2024-03-11 | Outpatient (CLI) | payer MEDICARE, SELFPAY ==
[2024-03-11 18:10] LABS: Vitamin D,25 Hydroxy 47.2 ng/mL
[2024-03-11 18:30] LABS: Anion Gap 7 (5-15); BUN 12 mg/dL (7-18); BUN/Creat Ratio 18.6 RATIO (10-20); Calcium,Total 9.1 mg/dL (8.5-10.1); Chloride 105 mmol/L (98-107); Creatinine, Serum 0.64 mg/dL (0.55-1.02); EST Glomerular Filtration Rate 98 mL/min (>60); Est Glom Filt Rate - Afr Amer 118 mL/min (>60); Glucose 84 mg/dL (74-106); Sodium Level 137 mmol/L (136-145); T4 Free Direct 0.76 ng/dL (0.76-1.46); Thyroid Stim Hormone (TSH) 0.26 uIU/mL (0.358-3.74)
== END | disposition home or self-care (01) ==
PROVIDERS: PCP Family Medicine; Visit Provider Family Medicine
DX: E03.9 Hypothyroidism, unspecified (principal); M85.80 Other specified disorders of bone density and structure, unspecified site
CPT/HCPCS: 36415; 80048; 82306; 84439; 84443

== ENCOUNTER → 2024-03-17 | Outpatient (CLI) | payer MEDICARE, SELFPAY ==
--- NOTE | 2024-03-17 09:42 | BI_ITS ---
MAMMOGRAPHY - BILATERAL SCREENING REASON FOR EXAM: Female, 68 years old. Routine annual screening examination. PERTINENT HISTORY: Non-contributory. TECHNIQUE: Digital bilateral breast romina (3D mammographic acquisition) in the CC and MLO projections. 2-D mediolateral oblique (MLO) and craniocaudad (CC) views of both breasts were obtained. CAD: Full Field Digital Mammography with Computer Added Detection was performed. COMPARISON: Comparison is made with prior study dated March 06, 2023 and February 26, 2023. FINDINGS: Breast Composition: The breasts are heterogeneously dense, which may obscure small masses. Stable 1.8 cm x 2.2 cm nodular density in the deep upper lateral aspect of the left breast. This was demonstrated to be a septated cyst on prior sonogram. No other significant abnormalities are identified. There has been no significant change since the prior study. BI/SCRN MAMM (CAD)W/ROMINA BILAT IMPRESSION: Stable bilateral screening mammogram. Yearly follow-up mammogram recommended. (A) ASSESSMENT CATEGORY: BIRADS Category 2: Benign. A letter regarding these results will be sent to the patient by the facility within 30 days. Approximately 10% of breast cancers are not detected by mammography. A normal mammogram should not delay biopsy of a clinically suspicious abnormality. [id number] Electronically Signed: Shun Mike MD at 10:53 EDT ,
== END | disposition home or self-care (01) ==
PROVIDERS: PCP Family Medicine; Referring Provider Family Medicine; Visit Provider Family Medicine
DX: Z12.31 Encounter for screening mammogram for malignant neoplasm of breast (principal)
CPT/HCPCS: 77063; 77067

== ENCOUNTER → 2024-03-19 | Outpatient (CLI) | payer MEDICARE, SELFPAY | END | disposition home or self-care (01) | PROVIDERS: PCP Family Medicine; Visit Provider Family Medicine | DX: R79.89 Other specified abnormal findings of blood chemistry (principal) | CPT/HCPCS: 36415; 84480 ==

== ENCOUNTER → 2025-03-18 | Outpatient (CLI) | payer MEDICARE, SELFPAY ==
[2025-03-18 16:21] LABS: Anion Gap 13 (5-15); BUN 11 mg/dL (4-19); BUN/Creat Ratio 17.1 RATIO (10-20); Calcium,Total 9.4 mg/dL (7.6-11.0); Chloride 99 mmol/L (98-108); Creatinine, Serum 0.63 mg/dL (0.70-1.20); EST Glomerular Filtration Rate 97 (>60); Glucose 82 mg/dL (70-99); Potassium 4.1 mmol/L (3.3-5.1); Sodium Level 136 mmol/L (133-145); Thyroid Stim Hormone (TSH) 0.303 uIU/mL (0.300-4.200); Vitamin D,25 Hydroxy 59.6 ng/mL (30-100)
== END | disposition home or self-care (01) ==
LOC: MFPLAB 11:55
PROVIDERS: PCP Family Medicine; Referring Provider Family Medicine; Visit Provider Family Medicine
DX: M85.80 Other specified disorders of bone density and structure, unspecified site (principal); R79.89 Other specified abnormal findings of blood chemistry
CPT/HCPCS: 36415; 80048; 82306; 84439; 84443; 84481

== ENCOUNTER → 2025-03-30 | Outpatient (CLI) | payer MEDICARE, SELFPAY ==
--- NOTE | 2025-03-30 06:56 | BI_ITS ---
EXAM: SCRN MAMM (CAD)W/ROMINA BILAT DATE: 03/30/2025 CLINICAL HISTORY: F, Age 69 y/o , SCREENING No family history. BREAST CANCER RISK ASSESSMENT: Not assessed. TECHNIQUE: SCRN MAMM (CAD)W/ROMINA BILAT COMPARISON: Prior exam(s) dated March 17, 2024.. FINDINGS: TISSUE DENSITY: The breast tissue is heterogeneously dense, which may obscure small masses. Bilateral Breast Mammographic Findings: Increase in size of the previously seen nodular density in the upper-outer aspect of the left breast. Repeat sonogram recommended for further evaluation. BI/SCRN MAMM (CAD)W/ROMINA BILAT IMPRESSION: Slight increase in size of the nodular density in the upper lateral aspect of t he left breast as described. Repeat sonogram recommended. OVERALL FINAL ASSESSMENT BI-RADS 0: INCOMPLETE - NEED ADDITIONAL IMAGING EVALUATION. RECOMMENDATION: Ultrasound Recommended A letter with findings and recommendations will be mailed to the patient. Reading Location: [facility]
--- NOTE | 2025-03-30 06:58 | BD_ITS ---
PROCEDURE: DEXA BONE DENSITY STUDY 03/30/2025 REASON FOR EXAM: F, age 69 y/o . Postmenopausal. TECHNIQUE: DEXA BONE DENSITY STUDY COMPARISON: Comparison is made with prior study dated February 26, 2023. FINDINGS: BMD and T-SCORES Lumbar spine: 0.906 g/cm2, T-score -1.0 Levels: L1 through L4 Change from prior: Loss of 3.1%. Left femoral neck: 0.755 g/cm2, T-score -0.8 Femoral neck comparison data not recommended for monitoring change. Left total hip: 0.764 g/cm2, T-score -1.5 Change from prior: Loss of 3.8%. Right femoral neck: 0.724 g/cm2, T-score -1.1 Femoral neck comparison data not recommended for monitoring change. Right total hip: 0.762 g/cm2, T-score -1.5 Change from prior: Loss of 2.5%. The World Health Organization has defined the following categories based on bone density: Normal bone density: T-score equal to or greater than -1.0 Osteopenia: T-score between -1.0 and -2.5 Osteoporosis: T-score equal to or less than -2.5 The patient does meet the pharmacological treatment recommendations for prevention of osteoporosis. BD/Dexa Bone Density Study IMPRESSION: OSTEOPENIA. Recommend follow-up as clinically warranted. Reading Location: [id number]
--- OUTSIDE RECORDS SUMMARY | 2025-03-30 07:15 | XMS RPT_ITS | CCD ---
Author Organization [facility] Care Team Providers Care Carpet Tile Layer Name Role Phone Dr. Jem Garcia Primary Care Provider Dr. Jem Garcia Referring Provider Wilda PRESCRIPTION CLERK LENSES, GETACHEW Lux Attending Provider Jose SKINNER, Dr. Belle Primary Care Provider Jose SKINNER, Dr. Belle Attending Provider Jose SKINNER, Dr. Belle Referring Provider Yoshi Garcia Primary Care Unavailable Yoshi Garcia Attending Unavailable Yoshi Garcia Referring Unavailable Yoshi Garcia Primary Care Unavailable Yoshi Garcia Attending Unavailable Yoshi Garcia Referring Unavailable Yoshi Garcia Attending Unavailable Yoshi Garcia Referring Unavailable Yoshi Garcia Primary Care Unavailable Allergies Allergy Classification Reported Allergen(s) Allergy Type Date of Onset Reaction(s) Facility (4 sources) bee venom protein (honey bee) Allergy to substance 07-03-2022 [facility] (1 source) bee venom protein (honey bee) Drug allergy (disorder) 07-03-2022 [facility] Repository Medications Current Medications Medication Drug Class(es) Dates Sig (Normalized) Sig (Original) cholecalciferol 0.05 mg oral capsule (5 sources) Vitamin D Start: 02-07-2022 take 1 capsule by mouth once daily Cholecalciferol (Vitamin D3) 50 mcg (2,000 unit) capsule Active 50 ug PO DAILY February 07, 2022 12:00am [id number] 0.3 ml EPINEPHrine 1 mg/ml auto-injector (10 sources) alpha-Adrenergic Agonist, beta-Adrenergic Agonist, Catecholamine Start: 07-03-2022 Epinephrine (Epi E-Z Pen) 0.3 mg/0.3 mL Auto-Injector Active July 03, 2022 12:00am Start: 06-22-2018 End: 02-07-2022 inject 0.3 mg by intramuscular injection once Epinephrine 0.3 MG syringe Discontinued 0.3 mg IM ONE TIME June 22, 2018 12:00am February 07, 2022 2:09pm Multivitamin (Multiple Vitamins) 1 EACH tablet (6 sources) Start: 06-22-2018 take 1 tablet by mouth once daily Multivitamin (Multiple Vitamins) 1 EACH tablet Active 1 EACH PO DAILY June 22, 2018 2:04pm Start: 06-22-2018 take 1 tablet by martin th once daily Multivitamin (Multiple Vitamins) 1 EACH tablet Active 1 NMA PO DAILY June 22, 2018 12:00am Start: 06-22-2018 take 1 tablet by martin th once daily Multivitamin (Multiple Vitamins) 1 EACH tablet Active 1 EACH PO DAILY June 22, 2018 12:00am Completed/Discontinued Medications Medication Drug Class(es) Dates Sig (Normalized) Sig (Original) diphenhydrAMINE hydrochloride 25 mg oral capsule (6 sources) Histamine-1 Receptor Antagonist Start: 06-22-2018 End: 02-07-2022 take 1 capsule by mouth three times daily as needed Diphenhydramine Hcl 25 MG capsule Discontinued 25 mg PO 3 TIMES DAILY NEEDED as needed for Itching June 22, 2018 12:00am February 07, 2022 2:09pm famotidine 20 mg oral tablet (6 sources) Histamine-2 Receptor Antagonist Start: 06-22-2018 End: 02-07-2022 take 1 tablet by mouth twice daily Famotidine 20 MG tablet Discontinued 20 mg PO TWICE A DAY June 22, 2018 12:00am February 07, 2022 2:09pm Problems Problem Classification Problem Date Documented Da te Episodic/Chronic Menopausal disorders (6 sources) Atrophic vaginitis; Translations: [Postmenopausal atrophic vaginitis] Chronic Comment on above: denies symptoms Occlusion or stenosis of precerebral arteries (1 source) Occlusion and stenosis of right carotid artery; Translations: [Occlusion and stenosis of right carotid artery] Onset: 03-29-2025 Chronic Other bone disease and musculoskeletal deformities (1 source) Other specified disorders of bone density and structure, unspecified site; Translations: [Other specified disorders of bone density and structure, unspecified site] Onset: 03-24-2025 Episodic Other injuries and conditions due to external causes (4 sources) Closed injury of head; Translations: [Unspecified injury of head, initial encounter] 07-11-2022 Episodic Other screening for suspected conditions (not mental disorders or infectious disease) (1 source) Encounter for screening mammogram for malignant neoplasm of breast; Translations: [Encounter for screening mammogram for malignant neoplasm of breast] Onset: 03-26-2025 Episodic Residual codes; unclassified (1 source) Asymptomatic menopausal state; Translations: [Asymptomatic menopausal state] Onset: 03-26-2025 Episodic Syncope (4 sources) Syncope; Translations: [Syncope and collapse] 07-11-2022 Episodic Results Test Name Value Interpretation Reference Range Facility Anion gap in Serum or Plasma Ordered By: Yoshi Garcia on 03-18-2025 Anion gap [Moles/Vol] 13 mmol/L 02-18 [facility] BUN/creatinine ratioOrdered By: Yoshi Garcia on 03-18-2025 Urea nitrogen/Creatinine [Mass ratio] 17.1 mg/mg 07-26 [facility] Basic Metabolic Profile (BMP )on 03-18-2025 BUN/CRE 17.1 RATIO Normal 07-26 [facility] Comment on above: Order Comment: Order Date: 03/18/25 Order Info: 0667-1 - BMP Order Info: - T3F Order Info: 3 - TSH Order Info: 3024-04 T4F Performed By: #### L 500.2500, L501.84441, L501.9520, L506.0400 #### [facility] Laboratory [facility] [address] [place], [place], [id number] Calcium [Mass/Vol] 9.4 mg/dL Normal 7.6-11.0 [facility] Comment on above: Order Comment: Order Date: 03/18/25 Order Info: 0667-1 - BMP Order Info: 0 - T3F Order Info: 3 - TSH Order Info: 3024-04 T4F Performed By: #### L 500.2500, L501.14587, L501.9520, L506.0400 #### [facility] Laboratory [address] [place], [address] Chloride [Moles/Vol] 99 mmol/L Normal 98-108 [facility] Comment on above: Order Comment: Order Date: 03/18/25 Order Info: 666-10 - BMP Order Info: 3051-0 - T3F Order Info: 3016-3 - TSH Order Info: 3024-7 - T4F Performed By: #### L 500.2500, L501.24695, L501.9520, L506.0400 #### [facility] [address] [place], [address] CO2 [Moles/Vol] 24.0 mmol/L Normal 21.0-32.0 [facility] Comment on above: Order Comment: Order Date: 03/18/25 Order Info: 666-10 - BMP Order Info: 3051-0 - T3F Order Info: 3016-3 - TSH Order Info: 30247 - T4F Performed By: #### L 500.2500, L501.60808, L501.9520, L506.0400 #### [facility] [address] [place], [address] Creatinine [Mass/Vol] 0.63 mg/dL Low 0.70-1.20 [facility] Comment on above: Order Comment: Order Date: 03/18/25 Order Info: 666-10 - BMP Order Info: 3051-0 - T3F Order Info: 3016-3 - TSH Order Info: 3024-7 - T4F Performed By: #### L 500.2500, L501.89431, L501.9520, L506.0400 #### [facility] [address] [place], [address] GAP 13 Normal 5-15 [facility] Comment on above: Order Comment: Order Date: 03/18/25 Order Info: 666-10 - BMP Order Info: 3051-0 - T3F Order Info: 3016-3 - TSH Order Info: 3024-7 - T4F Performed By: #### L 500.2500, L501.41898, L501.9520, L506.0400 #### [facility] [address] [place], [address] GFR/1.73 sq M.predicted among non-blacks MDRD (S/P/Bld) [Vol rate/Area] 97 mL/min/{1.73_m2} Normal >60 [facility] Comment on above: Order Comment: Order Date: 03/18/25 Order Info: 666-10 - BMP Order Info: 3050-0 - T3F Order Info: 3 - TSH Order Info: 3024-04 - T4F Result Comment: mL/m in/1.73m2 CKD-EPI Creatinine Equation (2020) Performed By: #### L 500.2500, L501.57538, L501.9520, L506.0400 #### [facility] [address] [place], [address] Glucose [Mass/Vol] 82 mg/dL Normal 70-99 [facility] Comment on above: Order Comment: Order Date: 03/18/25 Order Info: 666-10 - BMP Order Info: 3050-0 - T3F Order Info: 3 - TSH Order Info: 3024-04 - T4F Performed By: #### L 500.2500, L501.09836, L501.9520, L506.0400 #### [facility] [address] [place], [address] Potassium [Moles/Vol] 4.1 mmol/L Normal 3.3-5.1 [facility] Comment on above: Order Comment: Order Date: 03/18/25 Order Info: 666-10 - BMP Order Info: 3050-0 - T3F Order Info: 3 - TSH Order Info: 7 - T4F Performed By: #### L 500.2500, L501.94053, L501.9520, L506.0400 #### [facility] [address] [place], [place], [address] Sodium [Moles/Vol] 136 mmol/L Normal 133-145 [facility] Comment on above: Order Comment: Order Date: 03/18/25 Order Info: 666-10 BMP Order Info: 3051-0 - T3F Order Info: 3 - TSH Order Info: 3024-04 - T4F Performed By: #### L 500.2500, L501.01749, L501.9520, L506.0400 #### [facility] Laboratory [address] [place], [place], [address] Urea nitrogen [Mass/Vol] 11 mg/dL Normal 4-19 [facility] Comment on above: Order Comment: Order Date: 03/18/25 Order Info: 666-10 BMP Order Info: 0 - T3F Order Info: 3015-12 - TSH Order Info: 3024-04 - T4F Performed By: #### L 500.2500, L501.29950, L501.9520, L506.0400 #### [facility] Laboratory [address] [place], [place], [address] Carbon dioxide, total [Moles /volume] in Central venous bloodOrdered By: Yoshi Garcia on 03-18-2025 CO2 [Moles/Vol] 24.0 mmol/L 21.0-32.0 [facility] Chloride assayOrdered By: Luigi Garcia on 03-18-2025 Chloride [Moles/Vol] 99 mmol/L 98-108 [facility] Free T3on 03-18-2025 Free T3 [Mass/Vol] 3.0 pg/mL Normal 2.18-3.98 [facility] Comment on above: Order Comment: Order Date: 03/18/25 Order Info: 666-10 BMP Order Info: 3051-0 - T3F Order Info: 3 - TSH Order Info: 7 - T4F Performed By: #### L 500.2500, L501.30165, L501.9520, L506.0400 #### [facility] [place], [address] Free R9Legxnem By: Kiet Garcia on 03-18-2025 Free T3 [Mass/Vol] 3.0 pg/mL 2.18-3.98 [facility] Glomerular filtration rate ( GFR) estimation/1.73 sq m using serum, plasma, or whole bOrdered By: Yoshi Garcia on 03-18-2025 GFR/1.73 sq M.predicted among non-blacks MDRD (S/P/Bld) [Vol rate/Area] 97 mL/min/{1.73_m2} >60 [facility] Comment on above: mL/min/1.73m2 CKD-EP I Creatinine Equation (2020) Potassium measurement (mass/ volume)Ordered By: Yoshi Garcia on 03-18-2025 Potassium (Unsp spec) [Mass/Vol] 4.1 mmol/L 3.3-5.1 [facility] Serum creatinine measurement (mass/volume)Ordered By: Yoshi Garcia on 03-18-2025 Creatinine [Mass/Vol] 0.63 mg/dL Low 0.70-1.20 [facility] Serum glucose measurement (m ass/volume)Ordered By: Yoshi Garcia on 03-18-2025 Glucose [Mass/Vol] 82 mg/dL 70-99 [facility] Serum or plasma calcium sohail urement (mass/volume)Ordered By: Yoshi Garcia on 03-18-2025 Calcium [Mass/Vol] 9.4 mg/dL 7.6-11.0 [facility] Serum or plasma urea nitroge n measurement (mass/volume)Ordered By: Yoshi Garcia on 03-18-2025 Urea nitrogen [Mass/Vol] 11 mg/dL 4-19 [facility] Sodium levelOrdered By: Conor Garcia on 03-18-2025 Sodium [Moles/Vol] 136 mmol/L 133-145 [facility] T4 Free Directon 03-18-2025 T4 FREE DIRECT 1.00 ng/dL Normal 0.76-1.46 [facility] Comment on above: Order Comment: Order Date: 03/18/25 Order Info: 666-10 - BMP Order Info: 3051-0 - T3F Order Info: 3 - TSH Order Info: 7 - T4F Performed By: #### L 500.2500, L501.69083, L501.9520, L506.0400 #### [facility] Laboratory [address] [place], [place], [address] T4 freeOrdered By: Kiet Garcia on 03-18-2025 Free T4 [Mass/Vol] 1.00 ng/dL 0.76-1.46 [facility] TSH DL <= 0.005 mIU/L QnOrde red By: Yoshi Garcia on 03-18-2025 TSH Qn 0.303 uIU/mL 0.300-4.200 [facility] Thyroid Stim Hormone (TSH)on 03-18-2025 TSH 0.303 uIU/mL Normal 0.300-4.200 [facility] Comment on above: Order Comment: Order Date: 03/18/25 Order Info: 666-10 - BMP Order Info: 0 - T3F Order Info: 3015-12 - TSH Order Info: 3024-04 - T4F Performed By: #### L 500.2500, L501.10713, L501.9520, L506.0400 #### [facility] Laboratory [address] [facility] [place], [place], [address] Vitamin D,25 Hydroxyon 03-18 Vitamin D 25-OH 59.6 ng/mL Normal 30-100 [facility] Comment on above: Order Comment: Order Date: 03/18/25 Order Info: 666-10 - BMP Order Info: 3051-0 - T3F Order Info: 3 - TSH Order Info: 3027 - T4F Result Comment: Odalys min D Status Deficiency: <20 ng/mL (50nmol/L) Insufficiency: 20-30 ng/mL (50-75 nmol/L) Sufficiency: 30-100 ng/mL (75-250 nmol/L) Toxicity: >100 ng/mL (>250 nmol/L) Performed By: #### L 506.1001 #### [facility] Laboratory [address] [place], [address] Basophil percentageOrdered B y: Dr. Garcia on 01-29-2023 Chloride [Moles/Vol] 108 mmol/L 98-107 [facility] Cholesterol [Mass/Vol] 224 mg/dL <200 [facility] Comment on above: <200 mg/dL Desirable 200-240 mg/dL Borderline >240 mg/dL High Risk Glucose [Mass/Vol] 86 mg/dL 74-106 [facility] Potassium [Moles/Vol] 4.2 mmol/L 3.5-5.1 [facility] Sodium [Moles/Vol] 137 mmol/L 136-145 [facility] Triglyceride [Mass/Vol] 47 mg/dL <199 [facility] Comment on above: The drugs N-Acetylcy steine and Metamizole may falsely depress this assay.Serum Triglycerides Reference Interval Normal <150 mg/dL Borderline high 150 - 199 mg/dL High 200 - 499 mg/dL Very High > or = 500 mg/dL Laboratory - Chemistry and C hemistry - challengeOrdered By: Dr. Garcia on 01-29-2023 CO2 [Moles/Vol] 27.0 mmol/L 21.0-32.0 [facility] Free T4 [Mass/Vol] 0.79 ng/dL 0.76-1.46 [facility] Urea nitrogen/Creatinine [Mass ratio] 15.3 mg/mg 10-20 [facility] No Panel InformationOrdered By: Dr. Garcia on 01-29-2023 Estimated GFR (MDRD) Amer 117 mL/min >60 [facility] Comment on above: GFR Calc Estimated GFR (MDRD) Non-Af Amer 97 mL/min >60 [facility] Comment on above: Non- GFR Calc Free Triiodothyronine (T3) pg/dL 2.9 pg/mL 2.18-3.98 [facility] Thyroid Stimulating Hormone (TSH) 0.19 uIU/mL 0.358-3.74 [facility] Vitamin D 25-Hydroxy 60.2 ng/mL [facility] Comment on above: Vitamin D 25(OH) Sta tus Range Deficiency <20 ng/mL (50nmol/L) Insufficiency 20 - 30 ng/mL (50 - 75 nmol/L) Sufficiency 30 - 100 ng/mL (75 - 250 nmol/L) Toxicity >100 ng/mL (>250 nmol/L) Serum or plasma calcium sohail urement (mass/volume)Ordered By: Dr. Garcia on 01-29-2023 Calcium [Mass/Vol] 9.3 mg/dL 8.5-10.1 [facility] Serum or plasma cholesterol in HDL measurement (mass/volume)Ordered By: Dr. Garcia on 01-29-2023 Cholesterol in HDL [Mass/Vol] 94 mg/dL >40 [facility] Comment on above: The drugs N-Acetylcy steine and Metamizole may falsely depress this assay. Reference Range HDL <40 mg/dL Low HDL Cholesterol HDL >or= 60 mg/dL High HDL Cholesterol Serum or plasma cholesterol in VLDL measurement (mass/volume)Ordered By: Dr. Garcia on 01-29-2023 Cholesterol in VLDL [Mass/Vol] 9 mg/dL 5-40 [facility] Serum or plasma creatinine m easurement (mass/volume)Ordered By: Dr. Garcia on 01-29-2023 Creatinine [Mass/Vol] 0.65 mg/dL 0.55-1.02 [facility] Comment on above: The validity of the calculated GFR & GFRAA in patients over 70 years has not been determined. Clinical correlation is essential. Serum or plasma low density lipoprotein (LDL) cholesterol measurement (mass/volume)Ordered By: Dr. Garcia on 01-29-2023 Cholesterol in LDL [Mass/Vol] 121 mg/dL 0-130 [facility] Serum or plasma thyroperoxid ase antibody assay (units/volume)Ordered By: Dr. Garcia on 01-29-2023 TPO Ab Qn [IU]/mL 0-34 [facility] Comment on above: Performed at: [address] [id number] Director: Luis Michaesl PhD, Phone: [phone] Serum or plasma urea nitroge n measurement (mass/volume)Ordered By: Dr. Garcia on 01-29-2023 Urea nitrogen [Mass/Vol] 10 mg/dL 7-18 [facility] Thin prep Papanicolaou smear with manual screeningOrdered By: Dr. Garcia on 01-29-2023 Thin prep Papanicolaou smear with manual screening 2 5-15 [facility] Cervical or vagninal specime n microscopic examination by cytology stain (reported ason 02-07-2022 Cytology report Cyto stain Doc (Cvx/Vag) Comment [facility] Work Phone: Comment on above: The Pap smear is a s creening test designed to aid in thedetection of premalignant and malignant conditions of theuterine cervix. It is not a diagnostic procedure andshould not be used as the sole means of detecting cervicalcancer. Both false-positive and false-negative reports dooccur. Detection in cervical specim en of any of human papilloma virus (HPV) 16, 18, 31, 33,on 02-07-2022 HPV 16+18+31+33+35+39+45+51 +52+56+58+59+66+68 DNA Probe+sig amp Ql (Cvx) Negative Negative [facility] Work Phone: Comment on above: This nucleic acid am plification test detects fourteen high-risk HPV types (16,18,31,33,35,39,45,51,52,56,58,59,66,68)without differentiation.Performed at: - [facility] [id number] Director: Erin Harris MD, Phone: [phone] at: = - [facility] [address] [id number] Director: Erin Harris MD, Phone: [phone] Laboratory - Cytologyon Drying Room Supervisor Cyto stain Nom (Cvx/Vag) [ID] Comment [facility] Work Phone: Comment on above: Gabriel Davistechi hnologist (ASCP) Laboratory - Miscellaneous t estson 02-07-2022 Service comment (Unsp spec) [Interp] Comment [facility] Work Phone: Comment on above: This liquid based Th inPrep(R) pap test was screened withthe use of an image guided system. Service comment (Unsp spec) [Interp] . [facility] Work Phone: No Panel Informationon 02-07 Pathology report final diagnosis Narrative Comment [facility] Work Phone: Comment on above: NEGATIVE FOR INTRAEP ITHELIAL LESION OR MALIGNANCY. CNCOon 09-24-2019 [facility] HNO ID: [id number] Author: Mammography Coordinator Service: ? Author Type: Physician Type: Letter Filed: 09/28/2019 11:32 PM Note Text: September 24, 2019 PID: [id number] Yanira Aguiar [facility] [facility] [place] [address] Dear Ms. Aguiar, We are pleased to inform you that the results of your recent breast imaging exam on 09/24/2019 are normal. Your mammogram demonstrates that you have dense breast tissue, which could hide abnormalities. Dense breast tissue, in and of itself, is a relatively common condition. Therefore, this information is not provided to cause undue concern; rather, it is to raise your awareness and promote discussion with your health care provider regarding the presence of dense breast tissue in addition to other risk factors. Early detection of cancer is very important. We also understand recommendations regarding breast cancer screening are controversial. Please discuss with your primary care provider which strategy is best for you and whether a mammogram is right for you. Your imaging studies and report will be kept on file at [facility] as part of your permanent medical record and are available for your continuing care. Thank you for allowing us to help in meeting your health care needs. Sincerely, Dr. Crawford Interpreting Radiologist [facility] (Normal over 40) Normal [facility] SCREENINGon 09-24-2019 [facility] SCREENING * * *Final Report* * * DATE OF EXAM: Sep 24 2019 2:38PM [facility] 0581 - [facility] SCREENING / PROCEDURE REASON: Screening Digital Mammography with ROMINA * * * * Physician Interpretation * * * * RESULT: #[id number] - [facility] SCREENING BILATERAL DIGITAL SCREENING MAMMOGRAM WITH CAD: 09/24/2019 HISTORY: Screening /Screening Mammogram-Patient reports NO symptoms /priors available for comparison. RESULT: TECHNIQUE: The study was acquired using full field digital technology and interpreted from soft copy. Current study was also evaluated with a Computer Aided Detection (CAD). Comparison is made to exams dated: 09/12/2018 mammogram, 09/06/2016 mammogram - [facility], 09/09/2017 mammogram - [facility], and 10/21/2014 mammogram - [facility]. The tissue of both breasts is heterogeneously dense. This may lower the sensitivity of mammography. There is a benign cyst in the left breast. No significant masses, calcifications, or other findings are seen in either breast. There has been no significant interval change. IMPRESSION: BENIGN FINDING There is no mammographic evidence of malignancy. A 1 year screening mammogram is recommended. 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 With representation from Breast Imaging, Internal Medicine, Women's Health, Family Medicine, and Medical/Surgical Oncology, the [facility] has carefully reviewed the data and reached the following consensus: 1) All women should engage in shared decision-making with their providers to decide when to start and how often to screen; 2) All women should have the opportunity to start screening mammography at age 40; 3) For women ages 45-55, we recommend annual screening mammograms; 4) For women ages 55 and over, we support both the transition from an annual to a biennial interval if this aligns more with patient's values and preferences, or continuation with annual screening; 5) All women should discuss with their providers when to stop screening mammograms. Internal Combustion Engine Assembler: Mike Transcribe Date/Time: Sep 24 2019 2:39P Dictated by: JESSICA CRAWFORD MD This examination was interpreted and the report reviewed and electronically signed by: JESSICA CRAWFORD MD on Sep 24 2019 4:43PM EST [id number] Normal [facility] PROGRESSon 09-24-2019 PROGRESS HNO ID: [id number] Author: Matthew Lam (Tech) Service: ? Author Type: Awake Overnight Counselor Type: Progress Notes Filed: 09/24/2019 2:20 PM Note Text: Radiology Service Progress Note PATIENT NAME: Yanira Aguiar DATE OF SERVICE: September 24, 2019 TIME: 2:19 PM PATIENT IDENTITY VERIFICATION COMPLETED USING TWO (2) IDENTIFIERS: Name and Date of confirmed by patient verbally. PATIENT GENDER DATA: Female. status: : No status: NO. PATIENT RELEVANT IMPLANT DATA REVIEWED: Not Applicable RADIOLOGY DEPARTMENT: Mammography PERIPHERAL IV DATA: Not applicable SIGNED BY: Matthew Lam September 24, 2019 2:19 PM Normal [facility] Vital Signs Date Time Vital Sign Value Performing Clinician Pamela ramírez 02-07-2022 14:07-0400 Body height 157.[address] Jem Garcia Work Phone: [facility] Work Phone: 02-07-2022 14:07-0400 Body mass index (BMI) [Ratio] 24 kg/m2 Dr. Jem Garcia Work Phone: [facility] Work Phone: 02-07-2022 14:07-0400 Body weight 59.[address] Jem Garcia Work Phone: [facility] Work Phone: 02-07-2022 14:07-0400 Diastolic blood pressure 76 mm[Hg] Dr. Jem Garcia Work Phone: [facility] Work Phone: 02-07-2022 14:07-0400 Systolic blood pressure 120 mm[Hg] Dr. Jem Garcia Work Phone: [facility] Work Phone: Encounters Encounter Date Encounter Type Care Provider Facility Start: 03-31-2025 ambulatory Yoshi Braxtoni lity:[facility] Start: 03-30-2025 ambulatory Yoshi Santiago lity:[facility] Start: 03-18-2025 End: 03-18-[address] Yoshi Garcia MD Work Phone: [facility] Work Phone: Start: 03-18-2025 End: 03-18-[address] Yoshi Garcia MD -Laboratory [facility] Start: 03-18-2025 End: 03-18-2025 ambulatory Yoshi Garcia Facility:[facility] Start: 03-06-2023 End: 03-06-2023 ambulatory [facility] Work Phone: Start: 03-06-2023 End: 03-06-2023 Patient encounter procedure [facility]-Outpatient Breast Imaging Work Phone: Start: 02-26-2023 End: 02-26-2023 ambulatory [facility] Work Phone: Start: 02-26-2023 End: 02-26-2023 Patient encounter procedure [facility]-Outpatient Bone Densitometry Work Phone: Start: 01-29-2023 End: 01-29-2023 ambulatory [facility] Work Phone: Start: 01-29-2023 End: 01-29-2023 [facility] Start: 02-07-2022 End: 02-07-[address] Jem Garcia Work Phone: [facility]-Laboratory, Specimen Start: 02-07-2022 End: 02-07-[address] Jem Garcia Work Phone: [facility] Start: 01-09-2022 End: 01-09-2022 Patient encounter procedure [facility]-Outpatient Breast Imaging Procedures Date Procedure Procedure Detail Performing Clinician Start: 03-18-2025 Vitamin D, 25-hydrox y measurement Dr. Yoshi Garcia MD Work Phone: Comment on above: Vitamin D StatusDefi ciency: <20 ng/mL (50nmol/L)Insufficiency: 20-30 ng/mL (50-75 nmol/L)Sufficiency: 30-100 ng/mL (75-250 nmol/L)Toxicity: >100 ng/mL (>250 nmol/L) Start: 03-06-2023 Mammography Start: 03-06-2023 Ultrasonography of breast Start: 02-26-2023 Dual energy X-ray absorptiometry Start: 02-26-2023 Screening mammography Start: 01-09-2022 Screening mammography Payers Date Payer Category Payer Medicare [id number] 2025 Self-pay [id number] 2009 Private Health Insurance [id number] Medicare MEDICARE PART A B [id number] Unknown [id number] Unknown [employer] [id number] Unknown [id number] Unknown [id number] Social History Date Type Detail Facility Start: 06-22-2018 End: 07-03-2022 Tobacco smoking status NHIS Unknown if ever smoked [facility] Start: 1955 Sex Assigned At Female [facility] Start: 07-03-2022 Tobacco smoking stat us NHIS Never smoked tobacco (finding) [facility] Clinical Note 02-07-2022 Note Date & Type Note Facility 02-07-2022 Note [facility] Work Phone: Pap Smear Specimen Adequacy February 07, 2022 4:07pm Comment Satisfactory for evaluation. Endocervical and/or squamous metaplasticcells (endocervical component) are present. Comment on above: Satisfactory for corwin luation. Endocervical and/or squamous metaplasticcells (endocervical component) are present. Evaluation note Note Date & Type Note Facility Evaluation note No assessment information availa ble [facility] Work Phone: Evaluation note Note Date & Type Note Facility Evaluation note Diagnosis Onset Date Atrophic vaginitis acute [facility] Work Phone: Reason for referral (narrative) Note Date & Type Note Facility Reason for referral (narrative) No reason for referral information available [facility] Work Phone: Summary Purpose Family History No Family History Records Found Relationship Condition Age at Onset Recorded Date/T skylar father Cardiac disease Unknown mother Dementia Unknown Advance Directives No Advanced Directives Records Found Advance Directive Response Recorded Date/ Time Living Will No June 22, 2018 2:03pm Power of Mathematics Lecturer No June 2:03pm Advance Directive Response Recorded Date/ Time Living Will No July 03, 2022 8:22am Power of Mathematics Lecturer No June 8:22am Chief Complaint and Reason for Visit Chief Complaint SCREENING Chief Complaint SCREENING Annual ([employer]') Reason for Visit Atrophic vaginitis Chief Complaint POSTMENOPAUSAL, SCRE ENING RT BREAST ABN MAMM Additional Source Comments INFORMATION SOURCE (unrecogn ized section and content) DATE CREATED AUTHOR 09/29/2019 [facility] DATE CREATED AUTHOR AUTHOR'S ORGANIZ ATION 03/30/2025 [facility] Goals (unrecognized section and content) Goals may be documented in a n alternate sectionGoals may be documented in an alternate sectionGoals may be documented in an alternate sectionGoals may be documented in an alternate sectionGoals may be documented in an alternate sectionGoals may be documented in an alternate section Care Teams (unrecognized sec tion and content) Team Status: Active Member Role Status Dates Dr. Jem Garcia MD Family Provider Active Dr. Jem Garcia MD Primary Care Provider Activ e Team Status: Inactive Member Role Status Dates Dr. Jem Garcia MD Primary Care Provider, Atte nding Provider Active Team Status: Inactive Member Role Status Dates Dr. Jem Garcia MD Primary Care Provider, Attending Provider, Referring Provider Active Team Status: Active Member Role Status Dates Dr. Jem Garcia MD Primary Care Provider, Attending Provider, Referring Provider Active Team Status: Active Member Role Status Dates Dr. Yoshi Garcia MD Primary Care Provider Acti ve Team Status: Inactive Member Role Status Dates Dr. Yoshi Garcia MD Primary Care Provider Acti ve Start: March 18, 2025 End: March 18, 2025 Dr. Yoshi Garcia MD Attending Provider Active Start: March 18, 2025 End: March 18, 2025 Dr. Yoshi Garcia MD Referring Provider Active Start: March 18, 2025 End: March 18, 2025 FOR RECORDS PERTAINING TO PATIENTS WHO ARE OR HAVE BEEN ENROLLED IN A CHEMICAL DEPENDENCY/SUBSTANCEABUSE PROGRAM, SOME INFORMATION MAY BE OMITTED. This clinical summary was aggregated from multiple sources. Caution should be exercised in using it in the provision of clinical care. This summary normalizes information from multiple sources, and as a consequence, information in this document may materially change the coding, format and clinical context of patient data. In addition, data may be omitted in some cases. CLINICAL DECISIONS SHOULD BE BASED ON THE PRIMARY CLINICAL RECORDS. [facility] [employer], [facility]. provides no warranty or guarantee of the accuracy or completeness of information in this document.
--- OUTSIDE RECORDS SUMMARY | 2025-03-30 07:15 | XMS RPT_ITS | CCD ---
Author Organization [facility] Care Team Providers Care Siding Installer Name Role Phone Dr. Jem Garcia Primary Care Provider [phone] Dr. Jem Garcia Referring Provider Wilda SALES FORECAST ANALYST, GETACHEW Lux Attending Provider Jose SKINNER, Dr. Belle Primary Care Provider Jose SKINNER, Dr. Belle Attending Provider [phone] Jose SKINNER, Dr. Belle Referring Provider Yoshi [...] protein (honey bee) Allergy to substance 07-03-2022 [facility] (1 source) bee venom protein (honey bee) Drug allergy (disorder) 07-03-2022 [facility] Repository Medications Current Medications Medication Drug Class(es) Dates Sig (Normalized) Sig (Original) cholecalciferol 0.05 mg oral capsule (5 sources) Vitamin D Start: 02-07-2022 take 1 capsule by mouth once daily Cholecalciferol (Vitamin D3) 50 mcg (2,000 unit) capsule Active 50 ug PO DAILY February 07, 2022 12:00am [id number] 0.3 ml EPINEPHrine 1 mg/ml auto-injector (10 [...] 03-18-2025 Anion gap [Moles/Vol] 13 mmol/L 02-18 [facility] BUN/creatinine ratioOrdered By: Yoshi Garcia on 03-18-2025 Urea nitrogen/Creatinine [Mass ratio] 17.1 mg/mg 07-26 [facility] Basic Metabolic Profile (BMP )on 03-18-2025 BUN/CRE 17.1 RATIO Normal 07-26 [facility] Comment on above: Order Comment: Order Date: 03/18/25 Order Info: 0667-1 - BMP Order Info: - T3F Order Info: 3 - TSH Order Info: 3024-04 T4F Performed By: #### L 500.2500, L501.06580, L501.9520, L506.0400 #### [facility] [address] [place], [place], [id number] Calcium [Mass/Vol] 9.4 mg/dL Normal 7.6-11.0 [facility] Comment on above: Order Comment: Order Date: 03/18/25 Order Info: 0667-1 - BMP Order Info: 0 - T3F Order Info: 3 - TSH Order Info: 3024-04 T4F Performed By: #### L 500.2500, L501.34932, L501.9520, L506.0400 #### [facility] [address] [place], [address] Chloride [Moles/Vol] 99 mmol/L Normal 98-108 [facility] Comment on above: Order Comment: Order Date: 03/18/25 Order Info: 666-10 - BMP Order Info: 3051-0 - T3F Order Info: 3016-3 - TSH Order Info: 3024-7 - T4F Performed By: #### L 500.2500, L501.94024, L501.9520, L506.0400 #### [facility] [address] [place], [address] CO2 [Moles/Vol] 24.0 mmol/L Normal 21.0-32.0 [facility] Comment on above: Order Comment: Order Date: 03/18/25 Order Info: 666-10 - BMP Order Info: 3051-0 - T3F Order Info: 3016-3 - TSH Order Info: 30247 - T4F Performed By: #### L 500.2500, L501.34724, L501.9520, L506.0400 #### [facility] [address] [place], [address] Creatinine [Mass/Vol] 0.63 mg/dL Low 0.70-1.20 [facility] Comment on above: Order Comment: Order Date: 03/18/25 Order Info: 666-10 - BMP Order Info: 3051-0 - T3F Order Info: 3016-3 - TSH Order Info: 3024-7 - T4F Performed By: #### L 500.2500, L501.96338, L501.9520, L506.0400 #### [facility] [address] [place], [address] GAP 13 Normal 5-15 [facility] Comment on above: Order Comment: Order Date: 03/18/25 Order Info: 666-10 - BMP Order Info: 3051-0 - T3F Order Info: 3016-3 - TSH Order Info: 3024-7 - T4F Performed By: #### L 500.2500, L501.34181, L501.9520, L506.0400 #### [facility] [address] [place], [address] GFR/1.73 sq M.predicted among non-blacks MDRD (S/P/Bld) [Vol rate/Area] 97 mL/min/{1.73_m2} Normal >60 [facility] Comment on above: Order Comment: Order Date: 03/18/25 Order Info: 666-10 - BMP Order Info: 3050-0 - T3F Order Info: 3 - TSH Order Info: 3024-04 - T4F Result Comment: mL/m in/1.73m2 CKD-EPI Creatinine Equation (2020) Performed By: #### L 500.2500, L501.76625, L501.9520, L506.0400 #### [facility] [address] [place], [address] Glucose [Mass/Vol] 82 mg/dL Normal 70-99 [facility] Comment on above: Order Comment: Order Date: 03/18/25 Order Info: 666-10 - BMP Order Info: 3050-0 - T3F Order Info: 3 - TSH Order Info: 3024-04 - T4F Performed By: #### L 500.2500, L501.67097, L501.9520, L506.0400 #### [facility] [address] [place], [address] Potassium [Moles/Vol] 4.1 mmol/L Normal 3.3-5.1 [facility] Comment on above: Order Comment: Order Date: 03/18/25 Order Info: 666-10 - BMP Order Info: 3050-0 - T3F Order Info: 3 - TSH Order Info: 7 - T4F Performed By: #### L 500.2500, L501.02624, L501.9520, L506.0400 #### [facility] [address] [place], [place], [address] Sodium [Moles/Vol] 136 mmol/L Normal 133-145 [facility] Comment on above: Order Comment: Order Date: 03/18/25 Order Info: 666-10 BMP Order Info: 3051-0 - T3F Order Info: 3 - TSH Order Info: 3024-04 - T4F Performed By: #### L 500.2500, L501.74284, L501.9520, L506.0400 #### [facility] [address] [place], [place], [address] Urea nitrogen [Mass/Vol] 11 mg/dL Normal 4-19 [facility] Comment on above: Order Comment: Order Date: 03/18/25 Order Info: 666-10 BMP Order Info: 0 - T3F Order Info: 3015-12 - TSH Order Info: 3024-04 - T4F Performed By: #### L 500.2500, L501.72854, L501.9520, L506.0400 #### [facility] [address] [place], [place], [address] Carbon dioxide, total [Moles /volume] in Central venous bloodOrdered By: Yoshi Garcia on 03-18-2025 CO2 [Moles/Vol] 24.0 mmol/L 21.0-32.0 [facility] Chloride assayOrdered By: Luigi Garcia on 03-18-2025 Chloride [Moles/Vol] 99 mmol/L 98-108 [facility] Free T3on 03-18-2025 Free T3 [Mass/Vol] 3.0 pg/mL Normal 2.18-3.98 [facility] Comment on above: Order Comment: Order Date: 03/18/25 Order Info: 666-10 BMP Order Info: 3051-0 - T3F Order Info: 3 - TSH Order Info: 7 - T4F Performed By: #### L 500.2500, L501.37411, L501.9520, L506.0400 #### [facility] [place], [address] Free [id number] By: Kiet Garcia on 03-18-2025 Free T3 [Mass/Vol] 3.0 pg/mL 2.18-3.98 [facility] Glomerular filtration rate ( GFR) estimation/1.73 sq m using serum, plasma, or whole bOrdered By: Yoshi Garcia on 03-18-2025 GFR/1.73 sq M.predicted among non-blacks MDRD (S/P/Bld) [Vol rate/Area] 97 mL/min/{1.73_m2} >60 [facility] Comment on above: mL/min/1.73m2 CKD-EP I Creatinine Equation (2020) Potassium measurement (mass/ volume)Ordered By: Yoshi Garcia on 03-18-2025 Potassium (Unsp spec) [Mass/Vol] 4.1 mmol/L 3.3-5.1 [facility] Serum creatinine measurement (mass/volume)Ordered By: Yoshi Garcia on 03-18-2025 Creatinine [Mass/Vol] 0.63 mg/dL Low 0.70-1.20 [facility] Serum glucose measurement (m ass/volume)Ordered By: Yoshi Garcia on 03-18-2025 Glucose [Mass/Vol] 82 mg/dL 70-99 [facility] Serum or plasma calcium sohail urement (mass/volume)Ordered By: Yoshi Garcia on 03-18-2025 Calcium [Mass/Vol] 9.4 mg/dL 7.6-11.0 [facility] Serum or plasma urea nitroge n measurement (mass/volume)Ordered By: Yoshi Garcia on 03-18-2025 Urea nitrogen [Mass/Vol] 11 mg/dL 4-19 [facility] Sodium levelOrdered By: Conor Garcia on 03-18-2025 Sodium [Moles/Vol] 136 mmol/L 133-145 [facility] T4 Free Directon 03-18-2025 T4 FREE DIRECT 1.00 ng/dL Normal 0.76-1.46 [facility] Comment on above: Order Comment: Order Date: 03/18/25 Order Info: 666-10 - BMP Order Info: 3051-0 - T3F Order Info: 3 - TSH Order Info: 7 - T4F Performed By: #### L 500.2500, L501.52908, L501.9520, L506.0400 #### [facility] [address] [place], [place], [address] T4 freeOrdered By: Kiet Garcia on 03-18-2025 Free T4 [Mass/Vol] 1.00 ng/dL 0.76-1.46 [facility] TSH DL <= 0.005 mIU/L QnOrde red By: Yoshi Garcia on 03-18-2025 TSH Qn 0.303 uIU/mL 0.300-4.200 [facility] Thyroid Stim Hormone (TSH)on 03-18-2025 TSH 0.303 uIU/mL Normal 0.300-4.200 [facility] Comment on above: Order Comment: Order Date: 03/18/25 Order Info: 666-10 - BMP Order Info: 0 - T3F Order Info: 3015-12 - TSH Order Info: 3024-04 - T4F Performed By: #### L 500.2500, L501.76564, L501.9520, L506.0400 #### [facility] [address] [facility] [place], [place], [address] Vitamin D,25 Hydroxyon 03-18 Vitamin D 25-OH 59.6 ng/mL Normal 30-100 [facility] Comment on above: Order Comment: Order Date: 03/18/25 Order Info: 666-10 - BMP Order Info: 3051-0 - T3F Order Info: 3 - TSH Order Info: 3027 - T4F Result Comment: Odalys min D Status Deficiency: <20 ng/mL (50nmol/L) Insufficiency: 20-30 ng/mL (50-75 nmol/L) Sufficiency: 30-100 ng/mL (75-250 nmol/L) Toxicity: >100 ng/mL (>250 nmol/L) Performed By: #### L 506.1001 #### [facility] [address] [place], [address] Basophil percentageOrdered B y: Dr. Garcia on 01-29-2023 Chloride [Moles/Vol] 108 mmol/L 98-107 [facility] Cholesterol [Mass/Vol] 224 mg/dL <200 [facility] Comment on above: <200 mg/dL Desirable 200-240 mg/dL Borderline >240 mg/dL High Risk Glucose [Mass/Vol] 86 mg/dL 74-106 [facility] Potassium [Moles/Vol] 4.2 mmol/L 3.5-5.1 [facility] Sodium [Moles/Vol] 137 mmol/L 136-145 [facility] Triglyceride [Mass/Vol] 47 mg/dL <199 [facility] Comment on above: The drugs N-Acetylcy steine and Metamizole may falsely depress this assay.Serum Triglycerides Reference Interval Normal <150 mg/dL Borderline high 150 - 199 mg/dL High 200 - 499 mg/dL Very High > or = 500 mg/dL Laboratory - Chemistry and C hemistry - challengeOrdered By: Dr. Garcia on 01-29-2023 CO2 [Moles/Vol] 27.0 mmol/L 21.0-32.0 [facility] Free T4 [Mass/Vol] 0.79 ng/dL 0.76-1.46 [facility] Urea nitrogen/Creatinine [Mass ratio] 15.3 mg/mg 10-20 [facility] No Panel InformationOrdered By: Dr. Garcia on 01-29-2023 Estimated GFR (MDRD) Amer 117 mL/min >60 [facility] Comment on above: GFR Calc Estimated GFR (MDRD) Non-Af Amer 97 mL/min >60 [facility] Comment on above: Non- GFR Calc Free Triiodothyronine (T3) pg/dL 2.9 pg/mL 2.18-3.98 [facility] Thyroid Stimulating Hormone (TSH) 0.19 uIU/mL 0.358-3.74 [facility] Vitamin D 25-Hydroxy 60.2 ng/mL [facility] Comment on above: Vitamin D 25(OH) Sta tus Range Deficiency <20 ng/mL (50nmol/L) Insufficiency 20 - 30 ng/mL (50 - 75 nmol/L) Sufficiency 30 - 100 ng/mL (75 - 250 nmol/L) Toxicity >100 ng/mL (>250 nmol/L) Serum or plasma calcium sohail urement (mass/volume)Ordered By: Dr. Garcia on 01-29-2023 Calcium [Mass/Vol] 9.3 mg/dL 8.5-10.1 [facility] Serum or plasma cholesterol in HDL measurement (mass/volume)Ordered By: Dr. Garcia on 01-29-2023 Cholesterol in HDL [Mass/Vol] 94 mg/dL >40 [facility] Comment on above: The drugs N-Acetylcy steine and Metamizole may falsely depress this assay. Reference Range HDL <40 mg/dL Low HDL Cholesterol HDL >or= 60 mg/dL High HDL Cholesterol Serum or plasma cholesterol in VLDL measurement (mass/volume)Ordered By: Dr. Garcia on 01-29-2023 Cholesterol in VLDL [Mass/Vol] 9 mg/dL 5-40 [facility] Serum or plasma creatinine m easurement (mass/volume)Ordered By: Dr. Garcia on 01-29-2023 Creatinine [Mass/Vol] 0.65 mg/dL 0.55-1.02 [facility] Comment on above: The validity of the calculated GFR & GFRAA in patients over 70 years has not been determined. Clinical correlation is essential. Serum or plasma low density lipoprotein (LDL) cholesterol measurement (mass/volume)Ordered By: Dr. Garcia on 01-29-2023 Cholesterol in LDL [Mass/Vol] 121 mg/dL 0-130 [facility] Serum or plasma thyroperoxid ase antibody assay (units/volume)Ordered By: Dr. Garcia on 01-29-2023 TPO Ab Qn [IU]/mL 0-34 [facility] Comment on above: Performed at: [address] [id number] Director: Luis Michaels PhD, Phone: [phone] Serum or plasma urea nitroge n measurement (mass/volume)Ordered By: Dr. Garcia on 01-29-2023 Urea nitrogen [Mass/Vol] 10 mg/dL 7-18 [facility] Thin prep Papanicolaou smear with manual screeningOrdered By: Dr. Garcia on 01-29-2023 Thin prep Papanicolaou smear with manual screening 2 5-15 [facility] Cervical or vagninal specime n microscopic examination by cytology stain (reported ason 02-07-2022 Cytology report Cyto stain Doc (Cvx/Vag) Comment [facility] Work Phone: Comment on above: The Pap [...] DNA Probe+sig amp Ql (Cvx) Negative Negative [facility] Work Phone: Comment on above: This nucleic acid am plification test detects fourteen high-risk HPV types (16,18,31,33,35,39,45,51,52,56,58,59,66,68)without differentiation.Performed at: - [facility] [id number] Director: Erin Harris MD, Phone: [phone] at: = - [facility] [address] [id number] Director: Erin Harris MD, Phone: [phone] Laboratory - Cytologyon Supervisor [employer] Cyto stain Nom (Cvx/Vag) [ID] Comment [facility] Work Phone: Comment on above: Gabriel Davistechi hnologist (ASCP) Laboratory - Miscellaneous t estson 02-07-2022 Service comment (Unsp spec) [Interp] Comment [facility] Work Phone: Comment on above: This liquid based Th inPrep(R) pap test was screened withthe use of an image guided system. Service comment (Unsp spec) [Interp] . [facility] Work Phone: No Panel Informationon 02-07 Pathology report final diagnosis Narrative Comment [facility] Work Phone: Comment on above: NEGATIVE FOR INTRAEP ITHELIAL LESION OR MALIGNANCY. CNCOon 09-24-2019 [facility] HNO ID: [id number] Author: Mammography Coordinator Service: ? Author Type: Physician Type: Letter Filed: 09/28/2019 11:32 PM Note Text: September 24, 2019 PID: [id number] Yanira Aguiar [facility] [facility] [address] [place] [address] [place] [address] Dear Ms. Aguiar, We are pleased to [...] report will be kept on file at [facility] as part of your permanent medical record and are available for your continuing care. Thank you for allowing us to help in meeting your health care needs. Sincerely, Dr. Crawford Interpreting Radiologist [facility] (Normal over 40) Normal [facility] SCREENINGon 09-24-2019 [facility] SCREENING * * *Final Report* * * DATE OF EXAM: Sep 24 2019 2:38PM [facility] 0581 - [facility] SCREENING / PROCEDURE REASON: Screening Digital Mammography with ROMINA * * * * Physician Interpretation * * * * RESULT: #[id number] - [facility] SCREENING BILATERAL DIGITAL SCREENING MAMMOGRAM WITH CAD: 09/24/2019 HISTORY: Screening /Screening Mammogram-Patient reports NO symptoms /priors available for comparison. RESULT: TECHNIQUE: The study was acquired using full field digital technology and interpreted from soft copy. Current study was also evaluated with a Computer Aided Detection (CAD). Comparison is made to exams dated: 09/12/2018 mammogram, 09/06/2016 mammogram - [facility], 09/09/2017 mammogram - [facility], and 10/21/2014 mammogram - [facility]. The tissue of both breasts is heterogeneously dense. This may lower the sensitivity of mammography. There is a benign cyst in the left breast. No significant masses, calcifications, or other findings are seen in either breast. There has been no significant interval change. IMPRESSION: BENIGN FINDING There is no mammographic evidence of malignancy. A 1 year screening mammogram is recommended. Jessica moody/mike:09/24/2019 16:43:39 Web Site Developer(s): RT Cam[place](R)(M), [facility] letter sent: Normal over 40 Mammogram BI-RADS: [...] Health, Family Medicine, and Medical/Surgical Oncology, the [facility] has carefully reviewed the [...] their providers when to stop screening mammograms. Chairlift Operator: Mike Transcribe Date/Time: Sep 24 2019 2:39P Dictated by: JESSICA CRAWFORD MD This examination was interpreted and the report reviewed and electronically signed by: JESSICA CRAWFORD MD on Sep 24 2019 4:43PM EST [id number] Normal [facility] PROGRESSon 09-24-2019 PROGRESS HNO ID: [id number] Author: Matthew Lam (Tech) Service: ? Author Type: Supervisory Training Specialist Type: Progress Notes Filed: 09/24/2019 2:20 PM [...] Lam September 24, 2019 2:19 PM Normal [facility] Vital Signs Date Time Vital Sign Value Performing Clinician Pamela ramírez 02-07-2022 14:07-0400 Body height 157.[address] Jem Garcia Work Phone: [facility] Work Phone: 02-07-2022 14:07-0400 Body mass index (BMI) [Ratio] 24 kg/m2 Dr. Jem Garcia Work Phone: [facility] Work Phone: 02-07-2022 14:07-0400 Body weight 59.[address] Jem Garcia Work Phone: [facility] Work Phone: 02-07-2022 14:07-0400 Diastolic blood pressure 76 mm[Hg] Dr. Jem Garcia Work Phone: [facility] Work Phone: 02-07-2022 14:07-0400 Systolic blood pressure 120 mm[Hg] Dr. Jem Garcia Work Phone: [facility] Work Phone: Encounters Encounter Date Encounter Type Care Provider Facility Start: 03-31-2025 ambulatory Yoshi Barxtoni lity:[facility] Start: 03-30-2025 ambulatory Yoshi Santiago lity:[facility] Start: 03-18-2025 End: 03-18-[address] Yoshi Garcia MD Work Phone: [facility] Work Phone: Start: 03-18-2025 End: 03-18-[address] Yoshi Garcia MD -Laboratory [facility] Start: 03-18-2025 End: 03-18-2025 ambulatory Yoshi Garcia Facility:[facility] Start: 03-06-2023 End: 03-06-2023 ambulatory [facility] Work Phone: Start: 03-06-2023 End: 03-06-2023 Patient encounter procedure [facility]-Outpatient Breast Imaging Work Phone: Start: 02-26-2023 End: 02-26-2023 ambulatory [facility] Work Phone: Start: 02-26-2023 End: 02-26-2023 Patient encounter procedure [facility]-Outpatient Bone Densitometry Work Phone: Start: 01-29-2023 End: 01-29-2023 ambulatory [facility] Work Phone: Start: 01-29-2023 End: 01-29-2023 [facility] Start: 02-07-2022 End: 02-07-[address] Jem Garcia Work Phone: [facility]-Laboratory, Specimen Start: 02-07-2022 End: 02-07-[address] Jem Garcia Work Phone: [facility] Start: 01-09-2022 End: 01-09-2022 Patient encounter procedure [facility]-Outpatient Breast Imaging Procedures Date Procedure Procedure Detail [...] mammography Payers Date Payer Category Payer Medicare [id number] 2025 Self-pay [id number] 2009 Private Health Insurance [id number] Medicare MEDICARE PART A B [id number] Unknown [id number] Unknown [employer] [id number] Unknown [id number] Unknown [id number] Unknown [id number] Social History Date Type Detail Facility Start: 06-22-2018 End: 07-03-2022 Tobacco smoking status NHIS Unknown if ever smoked [facility] Start: 1955 Sex Assigned At Female [facility] Start: 07-03-2022 Tobacco smoking stat us NHIS Never smoked tobacco (finding) [facility] Clinical Note 02-07-2022 Note Date & Type Note Facility 02-07-2022 Note [facility] Work Phone: Pap Smear Specimen Adequacy February 07, 2022 4:07pm Comment Satisfactory for evaluation. Endocervical and/or squamous metaplasticcells (endocervical component) are present. Comment on above: Satisfactory for corwin luation. Endocervical and/or squamous metaplasticcells (endocervical component) are present. Evaluation note Note Date & Type Note Facility Evaluation note No assessment information availa ble [facility] Work Phone: Evaluation note Note Date & Type Note Facility Evaluation note Diagnosis Onset Date Atrophic vaginitis acute [facility] Work Phone: Reason for referral (narrative) Note Date & Type Note Facility Reason for referral (narrative) No reason for referral information available [facility] Work Phone: Summary Purpose Family History No Family History Records Found Relationship Condition Age at Onset Recorded Date/T skylar father Cardiac disease Unknown mother Dementia Unknown Advance Directives No Advanced Directives Records Found Advance Directive Response Recorded Date/ Time Living Will No June 22, 2018 2:03pm Power of Assembler [employer] [place] No June 2:03pm Advance Directive Response Recorded Date/ Time Living Will No July 03, 2022 8:22am Power of Assembler [employer] [place] No June 8:22am Chief Complaint and Reason for Visit Chief Complaint SCREENING 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 [facility] [email or web address], [facility]. provides no warranty or guarantee of the accuracy or completeness of information in this document.
== END | disposition home or self-care (01) ==
LOC: OPBD 07:12
PROVIDERS: PCP Family Medicine; Referring Provider Family Medicine; Visit Provider Family Medicine
DX: Z12.31 Encounter for screening mammogram for malignant neoplasm of breast (principal); Z78.0 Asymptomatic menopausal state
CPT/HCPCS: 77063; 77067; 77080

== ENCOUNTER → 2025-03-31 | Outpatient (CLI) | payer MEDICARE, SELFPAY ==
--- NOTE | 2025-03-31 07:57 | CDU_ITS ---
Reason For Study Reason For Study: CAROTID STENOSIS Rt. Velocities/BP Lt. Velocities/BP Prox CCA 66.7/17.6 cm/sec. Prox CCA 75.4/14.9 cm/sec. Mid CCA 98.5/27.0 cm/sec. Mid CCA 159.5/35.3 cm/sec. Dist CCA 74.3/22.6 cm/sec. Dist CCA 161.3/37.1 cm/sec. Prox ICA 94.1/24.8 cm/sec. Prox ICA 77.2/25.7 cm/sec. Mid ICA 108.4/34.7 cm/sec. Mid ICA 113.1/29.0 cm/sec. Dist ICA 123.5/43.1 cm/sec. Dist ICA 122.7/39.3 cm/sec. Rt. ICA/CCA = 123.5/98.5=1.3. Lt. ICA/CCA = 122.7/159.5=0.8. Prox ECA 90.8/14.9 cm/sec. Prox ECA 77.2/9.7 cm/sec. Rt. Vert. 79.8/21.5 cm/sec. Lt. Vert. 89.5/25.7 cm/sec. Right Extracranial There is intimal thickening but no significant atherosclerotic plaque noted in the right common carotid artery. There is intimal thickening but no significant atherosclerotic plaque noted in the right internal carotid artery. There is intimal thickening but no significant atherosclerotic plaque noted in the right external carotid artery. Antegrade flow is noted in the right vertebral artery. Left Extracranial There is intimal thickening but no significant atherosclerotic plaque noted in the left common carotid artery. There is heterogeneous, irregular atherosclerotic plaque noted in the left internal carotid artery. There is intimal thickening but no significant atherosclerotic plaque noted in the left external carotid artery. Antegrade flow is noted in the left vertebral artery. Procedure Carotid Duplex [id number]. This is a Carotid Duplex examination using B-mode, color flow and specral Doppler. Exam performed in department. VL/Carotid Duplex Ultrasound Interpretation Summary Normal right extracranial internal carotid. Mild (<50%) stenosis left extracranial internal carotid. Patent and antegrade vertebrals bilaterally. Ordering Physician: Yoshi Garcia Referring Physician: Yoshi Garcia Performed By: Vianey Talbot, ALEXIS, RVT
== END | disposition home or self-care (01) ==
LOC: CVS 07:56
PROVIDERS: PCP Family Medicine; Referring Provider Family Medicine; Visit Provider Family Medicine
DX: I65.21 Occlusion and stenosis of right carotid artery (principal)
CPT/HCPCS: 93880

== ENCOUNTER → 2025-04-02 | Outpatient (CLI) | payer MEDICARE, SELFPAY ==
--- NOTE | 2025-04-02 08:33 | US_ITS ---
PROCEDURE: BREAST LIMITED UNILATERAL 04/02/2025 REASON FOR EXAM: 69-year-old female presents for follow-up of the left breast mass seen on examination of 03/30/2025. No family history of breast cancer. COMPARISON: Mammogram 03/30/2025, 03/17/2024. Ultrasound 03/06/2023. TECHNIQUE: Targeted left breast ultrasound was performed. FINDINGS: Ultrasound performed of the upper-outer left breast demonstrates a cyst with a thin internal septation at 1 o'clock 9 cm from the nipple measuring 2.3 x 2.3 x 0.6 cm. This correlates with the mammographic finding. US/Breast Limited Unilateral IMPRESSION: Benign left breast cyst. BI-RADS 2: BENIGN RECOMMEND ANNUAL MAMMOGRAPHIC SCREENING. RECOMMENDATION: Routine annual follow-up in 1 Year Reading Location: [id number]
== END | disposition home or self-care (01) ==
PROVIDERS: PCP Family Medicine; Referring Provider Family Medicine; Visit Provider Family Medicine
DX: N63.21 Unspecified lump in the left breast, upper outer quadrant (principal)
CPT/HCPCS: 76642